=== PATIENT | female | born 1960 | race Caucasian/White ===

== ENCOUNTER → 2018-09-12 14:37 | Outpatient (CLI) | payer MEDICARE, MEDICAID, SELFPAY ==
--- NOTE | 2018-09-12 14:40 | CT_ITS ---
CT lung screening EXAM: CT LUNG LOW DOSE WO CONTRAST HISTORY: 45 pack year smoking history, asymptomatic for lung cancer ITS.REASON: CURRENT TOBACCO USE ORDERING PHYSICIAN: GERRY Angelo PATIENT AGE: 58 years COMPARISON: 11/05/2016 TECHNIQUE: The exam was performed on a GE Light Speed [address] scanner using 2.90 mGy CTDI. A low dose helical CT CHEST was performed on a multi-detector scanner. All CT scans at the facility use one or more dose reduction, viz: automated exposure control, ma/kV adjustment per patient size (including targeted exams where dose is matched to indication, i.e. head), or iterative reconstruction technique. The LDCT was performed in a facility that meets the criteria for the screening program. Data regarding this exam was submitted to ACR which is an approved registry. The order for this exam indicates that it came as a result of a lung cancer screening counseling shard decision-making visit that included all the elements required of such a visit including smoking cessation. The radiologist interpreting this exam meets the CMS criteria for the LDCT lung cancer screening program. The exam is reported using the Lung-RADS classification scale and reported to the ACR registry. NOTE: This study was performed for the specific purposes of lung cancer screening and is not an alternative to diagnostic chest CT. RADIATION DOSE: CTDI vol(CT dose Index-volume) = 2.90mG DLP (Dose Length Product) = 105.77 mGcm FINDINGS: There are biapical fibrotic changes with paraseptal emphysematous change with COPD. There are scattered small mediastinal lymph nodes which are not significant change. Coronary artery calcifications are also noted. There are scattered calcified granulomas. A 4 mm noncalcified nodule present in the left upper lobe anteriorly unchanged. There are several faint small nodular opacities in both lungs at 1 to 3 mm which do not appear significantly changed. No new suspicious nodules evident. IMPRESSION: 1. Lung RADS Category: 2, benign 2. Other findings: COPD, paraseptal emphysema, coronary artery calcifications RECOMMENDATIONS: 12 month LDCT follow-up
== END ==
PROVIDERS: PCP Physician Assistant; Visit Provider Physician Assistant
DX: Z12.2 Encounter for screening for malignant neoplasm of respiratory organs (principal); Z87.891 Personal history of nicotine dependence

== ENCOUNTER → 2019-05-16 08:20 | Outpatient (CLI) | payer MEDICARE, MEDICAID, SELFPAY ==
--- NOTE | 2019-05-16 08:23 | MM_ITS ---
PROCEDURE: MM DIG SCREENING MAMM BI W/CAD CLINICAL INDICATION: SCREENING There is no personal or family history of breast cancer. COMPARISON: [facility] DIG MAMM-SCREEN PETE from 04/11/2013 [facility] DIG MAMM-SCREEN PETE from 11/04/2015 TECHNIQUE: Standard CC and MLO images and 3D Tomosynthesis was obtained. R2 CAD reviewed. FINDINGS: Scattered fibroglandular densities are seen throughout both breasts and the findings are fairly symmetrical bilaterally. There is a benign-appearing calcification right breast. There is minimal arterial calcification in each breast. There is no suspicious lesion and no suspicious microcalcifications. Stuart images were reviewed showing no abnormality. IMPRESSION: Fibrofatty parenchyma with no suspicious lesions seen BI-RAD Category: 2 Benign Finding(s) FOLLOW-UP: 1YR 1 Year Follow-up (A letter has been sent to the patient regarding results of the study.) Dictated by: Dr. Fran Garcia MD 05/18/2019 08:[address] Fran Garcia MD in [place] 05/18/2019 08:04
--- NOTE | 2019-05-16 08:24 | XR_ITS ---
PROCEDURE: XR DEXA AXIAL SKELETON CLINICAL HISTORY: POST MENOPAUSAL COMPARISON: No exams were available for comparison FINDINGS: Osteopenia of the right femoral neck with a T-score of -2.4 and a BMD of 0.580. Osteoporosis left femoral neck with a T-score of -2.6 and a BMD of 0.55 Osteopenia of the lumbar spine with T-score -1.8 and a BMD of 0.846 IMPRESSION: Osteoporosis with high fracture risk. Treatment advised. Suggest follow-up exam 1 year Dictated by: Vishal Esparza MD 05/19/2019 14:56 Electronically signed by Vishal Esparza MD in [place] 05/19/2019 14:56
== END ==
PROVIDERS: PCP Physician Assistant; Visit Provider Physician Assistant
DX: Z12.31 Encounter for screening mammogram for malignant neoplasm of breast (principal); Z78.0 Asymptomatic menopausal state
CPT/HCPCS: 77063; 77067; 77080

== ENCOUNTER → 2020-06-13 10:31 | Outpatient (CLI) | payer MEDICARE, MEDICAID, SELFPAY ==
--- NOTE | 2020-06-13 10:50 | MR_ITS ---
PROCEDURE: MR HEAD/BRAIN WO/W CON CLINICAL INDICATION: history of pituitary tumor prior unsuccessful surgery to remove tumor in 1999. Occular migraine headache. Blurred vision symptoms x1yr. COMPARISON: No exams were available for comparison TECHNIQUE: Routine multiplanar multi echo sequences are performed without and with gadolinium enhancement. FINDINGS: Previous exams are not available for review. There is history of pituitary tumor. No restricted diffusion. CP angles are unremarkable. No midline shift or mass effect. There are few scattered T2 white matter hyperintensities which are nonspecific. No enhancing lesions are evident. No evidence of acute infarction. There is some mucosal thickening involving the residual right aspect of the sphenoid sinus. No obvious pituitary mass. The clivus is somewhat prominent but demonstrates fatty marrow replacement. The pituitary stalk is not deviated. The optic chiasm, corpus callosum, and craniocervical junction have an unremarkable appearance.. No mastoid effusion or sinus air-fluid level. IMPRESSION: 1. No acute intracranial findings. 2. No evidence of pituitary mass. 3. Sphenoid sinus disease on the right Dictated by: Vishal Esparza MD 06/19/2020 08:43 Vishal Esparza MD in [place] 06/19/2020 08:44
[2020-06-13 11:05] LABS: Basophils % 0.5 % (0.1-2.0); Eosinophils # 0.2 K/mm3 (0.0-0.4); Eosinophils % 2.4 % (0.1-12.0); Hematocrit 43.6 % (37.0-47.0); Hemoglobin 13.9 g/dL (12.2-16.2); Lymphocytes # 2.3 K/mm3 (0.7-4.5); Lymphocytes % 33.4 % (10-50); Mean Corpuscular HGB Conc 31.9 g/dL (31.8-35.4); Mean Corpuscular Hemoglobin 28.3 pg (27.0-31.2); Mean Corpuscular Volume 88.8 fl (81-99); Mean Platelet Volume 7.4 fl (7.4-10.4); Monocytes # 0.3 K/mm3 (0.1-1.0); Monocytes % 4.4 % (1.7-9.3); Neutrophils # 4.2 K/mm3 (1.8-7.8); Neutrophils % 59.2 % (37.0-80.0); Platelet Count 279 K/mm3 (142-424); Red Blood Count 4.92 M/mm3 (4.20-5.40); Red Cell Distribution Width 14.7 % (11.5-17.5)
[2020-06-13 11:25] LABS: Chloride 108 mmol/L (98-107)
[2020-06-13 11:26] LABS: Potassium 4.2 mmoL/L (3.5-5.1); Sodium 143 mmol/L (136-145)
[2020-06-13 11:28] LABS: Alanine Aminotransferase 17 U/L (12-78); Aspartate Amino Transferase 24 U/L (14-36); Bilirubin,Total 0.6 mg/dl (0.2-1.3); Blood Urea Nitrogen 9 mg/dl (7-17); Estimated Glomerular Filt Rate 85 ml/min (>60); GFR (African American) 103 ML/MIN (>60)
[2020-06-13 11:29] LABS: Albumin Level 4.6 g/dl (3.5-5.0); Albumin/Globulin Ratio 1.4 (1.1-1.8); Alkaline Phosphatase 95 U/L (38-126); Anion Gap 12.2 mEq/L (5-15); Calcium 9.8 mg/dl (8.4-10.2); Carbon Dioxide 27 mmol/L (22.0-30.0); Globulin 3.3 g/dL (1.3-3.2); Glucose 116 mg/dl (74-100); Total Protein,Serum 7.9 g/dl (6.3-8.2)
[2020-06-13 11:34] LABS: C-Reactive Protein 5.2 mg/L (0-4)
[2020-06-13 11:45] LABS: Erythrocyte Sedimentation Rate 11 mm/hr (0-30)
[2020-06-14 14:02] LABS: Prolactin 6.5 ng/mL (4.8-23.3)
[2020-06-21 18:01] LABS: Anti-DNA (DS) Ab Charge YES; Antinuclear Antibodies (ANA) POSITIVE
[2020-06-21 18:02] LABS: Anti-Jo-1 < 0.2; Anti-Jo-1 Charge YES; Antichromatin Abs Charge YES; Antichromatin Antibodies <0.2; Antiscleroderma-70 Abs Charge YES; Antiscleroderma-70 Antibodies <0.2; RNP Antibodies <0.2; RNP Antibodies Charge YES; Sjogren's Anti-SS-A <0.2; Sjogren's Anti-SS-A Ab Charge YES; Sjogren's Anti-SS-B <0.2; Sjogren's Anti-SS-B Ab Charge YES; Smith Antibodies Charge YES
[2020-06-21 18:03] LABS: Anti-Centromere B Abs Charge YES; Anti-Centromere B Antibodies < 0.2
== END ==
PROVIDERS: Visit Provider Specialist
DX: H53.9 Unspecified visual disturbance (principal); Z72.0 Tobacco use; Z87.898 Personal history of other specified conditions; Z98.890 Other specified postprocedural states; R51.9 Headache, unspecified
CPT/HCPCS: 36415; 70553; 80053; 84146; 85025; 85651; 86038; 86140; 86225; 86235; A9576

== ENCOUNTER → 2020-07-19 10:01 | Outpatient (CLI) | payer MEDICARE, MEDICAID, SELFPAY | PROVIDERS: PCP Family Medicine; Visit Provider Specialist | DX: H53.9 Unspecified visual disturbance (principal); R51.9 Headache, unspecified; Z72.0 Tobacco use; Z87.898 Personal history of other specified conditions; Z98.890 Other specified postprocedural states | CPT/HCPCS: 94762 ==

== ENCOUNTER 2020-08-12 12:23 | Emergency (ER) | payer MEDICARE, MEDICAID, SELFPAY ==
--- NOTE | 2020-08-12 13:07 | HMH.EDUTC ---
[facility] [place] Disposition Clinical Impression: COPD exacerbation Disposition: Home, Self-Care Condition on Discharge: Good Instructions: Chronic Obstructive Pulmonary Disease, DI for Chronic Obstructive Pulmonary Disease Additional Instructions: Drink plenty of fluids. Take tylenol for pain or fever. Return if you begin to have difficulty breathing. Follow up with your regular doctor. GO TO THE ER FOR ANY WORSENING SYMPTOMS Prescriptions: predniSONE [Prednisone 20mg Tab] 20 mg PO BID 4 Days #8 tab Transmission Status: Received by [email or web address] Benzonatate [Tessalon Perle 100mg Cap] 100 mg PO TIDP PRN #30 cap PRN Reason: Cough Transmission Status: Received by [email or web address] Azithromycin [Z-Ishaan 250mg Tab*] 250 mg PO UD DOSE PK #6 tab Transmission Status: Received by [email or web address] Referrals: Ever Jiménez MD [Primary Care Provider] - Time of Disposition: 13:21 Medical Decision Making - Medical Records Medical records reviewed: No: I reviewed the patient's medical records. - Naif Inquiry Pt receiving controlled substance: No Vital Signs: 08/12/20 13:15 08/12/20 13:31 Temperature 98.5 F 98 F Temperature Source Oral Pulse Rate 102 H Pulse Rate [Right] 107 H Respiratory Rate 20 22 Blood Pressure 141/96 H Blood Pressure [Right Arm] 136/89 Blood Pressure Mean [Right Arm] 104 02 Sat by Pulse Oximetry 96 Oxygen Delivery Method Room Air [facility] [place] HPI - General Stated complaint: soa Time Seen by Provider: 08/12/20 13:07 - History of Present Illness Provider Complaint: She states that for the past 2 days she has had a worsening cough and congestion. She denies fever/chills. She denies any exposure to covid-19. - Related Data Home Medications Medication Instructions Recorded Confirmed Alendronate Sodium [Fosamax 70mg 70 mg PO WEEKLY 06/05/19 07/23/20 Tablet] cholecalciferol (vitamin D3) 125 125 mcg PO DAILY 06/11/20 07/23/20 mcg (5,000 unit) capsule levothyroxine 175 mcg tablet 175 mcg PO DAILY tab 06/11/20 07/23/20 magnesium 30 mg tablet 30 mg PO DAILY 06/11/20 07/23/20 aspirin 81 mg tablet,delayed 81 mg PO DAILY 07/23/20 07/23/20 release multivitamin 1 tab PO DAILY 07/23/20 07/23/20 Previous Rx's Medication Instructions Recorded amitriptyline 25 mg tablet 25 mg PO HS #30 tab 07/23/20 Azithromycin [Z-Ishaan 250mg Tab*] 250 mg PO UD DOSE PK #6 tab 08/12/20 Benzonatate [Tessalon Perle 100mg 100 mg PO TIDP PRN #30 cap 08/12/20 Cap] predniSONE [Prednisone 20mg 20 mg PO BID 4 Days #8 tab 08/12/20 Tab] Allergies Allergy/AdvReac Type Severity Reaction Status Date / Time butorphanol Allergy Unknown UNKNOWN Verified 08/12/20 13:18 codeine Allergy Unknown UNKNOWN Verified 08/12/20 13:18 morphine Allergy Unknown UNKNOWN Verified 08/12/20 13:18 Penicillins Allergy Unknown Verified 08/12/20 13:18 [facility] History - Hepatitis A Screen Attestation statement:: This patient has been screened for Hepatitis A risk factors. I have reviewed the patient's past medical history: Yes Medical History: Reports:: Chronic Obstructive Pulmonary Disease (COPD), Kidney Stones, Migraine, Osteoporosis Denies:: Cancer, Diabetes Mellitus Type 1, Diabetes Mellitus Type 2, Internal Pacemaker, MRSA, Seizures Other Medical History: Reports: Fibromyalgia, Hypothyroidism, Osteoporosis, Thyroid Disease Other Surgeries: Yes: Appendectomy, Cholecystectomy, Colonoscopy, Dilation and Curettage, Hysterectomy-Total, Thyroidectomy, Other. No: Pacemaker Amputation: No Fractures: No Comment: brain tumor resection,lumbar discectomy - Social History Smoking Status: Current every day smoker Tobacco Type: cigarettes # Packs/Day (cigarettes): 1 Alcohol Intake: never Substance Use Type: denies use Occupational Status: disabled Housing: house Household Members: family, children Family Hx:: Cancer ROS Obtained: Yes All systems reviewed & no additional complaints - Con
[2020-08-12 13:15] VITALS: BP 136/89; PULSE 107; RESP 20; TEMP 36.9; O2SAT 96; BMI 26.5
[2020-08-12 13:31] VITALS: BP 141/96; PULSE 102; RESP 22; TEMP 36.6
== END 2020-08-12 13:38 | disposition home or self-care (01) ==
PROVIDERS: Emergency Provider Nurse Practitioner Family; PCP Family Medicine
DX: J44.1 Chronic obstructive pulmonary disease with (acute) exacerbation (principal); M79.7 Fibromyalgia; E03.9 Hypothyroidism, unspecified; M81.0 Age-related osteoporosis without current pathological fracture; Z87.442 Personal history of urinary calculi; F17.210 Nicotine dependence, cigarettes, uncomplicated; Z79.899 Other long term (current) drug therapy
CPT/HCPCS: G0463; 99202

== ENCOUNTER → 2020-11-15 16:42 | Outpatient (CLI) | payer MEDICARE, MEDICAID, SELFPAY ==
--- NOTE | 2020-11-15 | XR_ITS ---
PROCEDURE INFORMATION: Exam: XR Right Forearm Exam date and time: 11/15/2020 12:00 AM Age: 60 years old Clinical indication: Injury or trauma; Other: Hit arm against door frame; Blunt trauma (contusions or hematomas); Arm, lower; Right; Injury date: 11/05/2020; Injury details: Pain lateral proximal fore arm; Patient HX: Patient bumped arm against door frame 11/05/20 TECHNIQUE: Imaging protocol: XR Right forearm. Views: 2 views. COMPARISON: No relevant prior studies available. FINDINGS: Bones/joints: There is no evidence of acute fracture. There is no evidence of joint malalignment or dislocation. Soft tissues: There are no soft tissue masses or fluid collections. IMPRESSION: 1. No evidence of acute fracture. 2. No evidence of acute dislocation.
== END ==
PROVIDERS: PCP Family Medicine; Visit Provider Internal Medicine Rheumatology
DX: M79.631 Pain in right forearm (principal)
CPT/HCPCS: 73090

== ENCOUNTER → 2020-11-22 08:16 | Outpatient (CLI) | payer MEDICARE, MEDICAID, SELFPAY ==
--- NOTE | 2020-11-22 08:19 | CT_ITS ---
PROCEDURE: CT LUNG SCREENING CLINICAL INDICATION: SCREENING COMPARISON: CT LDCTLCAS LDCT FOR LUNG CA SCREEN from 11/05/[address] lung screening from 09/12/2018 TECHNIQUE: The exam was performed on a GE Zeolife Speed [address] scanner using 2.90 mGy CTDI. A low dose helical CT CHEST was performed on a multi-detector scanner. All CT scans at the facility use one or more dose reduction, viz: automated exposure control, ma/kV adjustment per patient size (including targeted exams where dose is matched to indication, i.e. head), or iterative reconstruction technique. The LDCT was performed in a facility that meets the criteria for the screening program. Data regarding this exam was submitted to ACR which is an approved registry. The order for this exam indicates that it came as a result of a lung cancer screening counseling shard decision-making visit that included all the elements required of such a visit including smoking cessation. The radiologist interpreting this exam meets the CMS criteria for the LDCT lung cancer screening program. The exam is reported using the Lung-RADS classification scale and reported to the ACR registry. NOTE: This study was performed for the specific purposes of lung cancer screening and is not an alternative to diagnostic chest CT. RADIATION DOSE: CTDI vol(CT dose Index-volume) = 2.90mG DLP (Dose Length Product) = 109.94 mGcm FINDINGS: COPD with biapical fibrotic changes. Paraseptal emphysema and centrilobular emphysema. Scattered areas of scarring. No suspicious nodules apparent. There are coronary artery calcifications. Stable 4 mm left upper lobe subpleural nodular opacity OTHER FINDINGS: Prior cholecystectomy. IMPRESSION: Lung-RADS Category 2 Benign Appearance or Behavior Follow-up: Continue annual screening with LDCT in 12 months Dictated by: Vishal Esparza MD 11/25/2020 09:27 Vishal Esparza MD in [place] 11/25/2020 09:27
== END ==
PROVIDERS: PCP Family Medicine; Visit Provider Family Medicine
DX: Z87.891 Personal history of nicotine dependence (principal); Z12.2 Encounter for screening for malignant neoplasm of respiratory organs
CPT/HCPCS: 71271

== ENCOUNTER → 2021-05-23 10:48 | Outpatient (CLI) | payer MEDICARE, MEDICAID, SELFPAY ==
--- NOTE | 2021-05-23 11:05 | US_ITS ---
FINAL REPORT CLINICAL HISTORY: FULLNESS IN MID NECK; PT HAS HAD THYROIDECTOMY FINDINGS: ULTRASOUND OF THE NECK SOFT TISSUES Patient reports prior thyroidectomy. There is a 9 mm probable lymph node in the left neck. This is within normal limits. There is no mass, lymphadenopathy, or fluid collection identified. Parotid and submandibular glands appear normal bilaterally. IMPRESSION: No abnormality identified by ultrasound. Reviewed, Interpreted and Dictated by James Holliday III, MD Transcribed by GERRY Amaya Authenticated by James Holliday III, MD on 05/23/2021 02:57:04 PM [facility]
== END ==
PROVIDERS: PCP Family Medicine; Visit Provider Family Medicine
DX: R22.1 Localized swelling, mass and lump, neck (principal)
CPT/HCPCS: 76536

== ENCOUNTER → 2021-06-03 08:55 | Outpatient (CLI) | payer MEDICARE, MEDICAID, SELFPAY | PROVIDERS: PCP Family Medicine; Visit Provider Nurse Practitioner | DX: U07.1 COVID-19 (principal) | CPT/HCPCS: C9803; U0003; U0005 ==

== ENCOUNTER → 2022-01-14 12:00 | Outpatient (CLI) | payer MEDICARE, MEDICAID, SELFPAY ==
--- NOTE | 2022-01-14 12:08 | XR_ITS ---
FINAL REPORT CLINICAL HISTORY: 2ND DIGIT FINGER INJURY FINDINGS: Right hand Three views were obtained. There is no acute fracture or dislocation. There are mild degenerative changes. No soft tissue abnormality is identified. IMPRESSION: No acute process. Reviewed, Interpreted and Dictated by James Holliday III, MD Transcribed by Lorraine Horton Authenticated and [facility]
== END ==
PROVIDERS: PCP Family Medicine; Visit Provider Nurse Practitioner Family
DX: S60.921A Unspecified superficial injury of right hand, initial encounter (principal)
CPT/HCPCS: 73130

== ENCOUNTER 2022-03-10 09:15 | Emergency (ER) | payer MEDICARE, MEDICAID, SELFPAY ==
[2022-03-10 09:15] VITALS: BP 135/91; PULSE 74; RESP 16; TEMP 36.7; O2SAT 96; BMI 26.2
--- NOTE | 2022-03-10 09:23 | PC.NURSE ---
ODELL SIMPSON at for patient eval
--- NOTE | 2022-03-10 09:26 | HMH.EDGENADL ---
Discharge Plan Disposition Patient Disposition: Home, Self-Care Condition: Good Prescriptions Prescriptions: New sulfamethoxazole-trimethoprim 800-160 mg tablet 1 tab PO BID 7 Days Qty: 14 0RF No Action aspirin [Adult Low Dose Aspirin] 81 mg tablet,delayed release (DR/EC) 81 mg PO DAILY multivitamin Tablet 1 tab PO DAILY levothyroxine 175 mcg tablet 175 mcg PO DAILY cholecalciferol (vitamin D3) 125 mcg (5,000 unit) capsule 125 mcg PO DAILY ascorbic acid (vitamin C) 500 mg tablet 500 mg PO DAILY hydroxychloroquine 200 mg tablet 200 mg PO BID alendronate 70 MG tablet 70 mg PO WEEKLY Referrals Follow up/Referrals: Ever Jiménez MD [Primary Care Provider] - See instructions Activity Restrictions/Add. Instructions Additional Instructions/Restrictions: You have been evaluated for abscess of the left earlobe. Abscess has been drained. Please take antibiotics as prescribed. Use warm compresses over the area. Take Tylenol or Motrin for pain and fever. Follow-up with your primary care doctor for wound recheck in 1 to 2 days. Return to the emergency department at once for any new or worsening symptoms, pain, fever, other concerns Clinical Impressions Clinical Impression: Abscess of skin or subcutaneous tissue Instructions Patient Instructions: DI for Skin Abscess Discharge ED Provider: Lor Deleon Adult HPI General Chief complaint: Skin/Abscess/Foreign Body Stated complaint: sore on left ear Time Seen by Provider: 03/10/22 09:24 History of Present Illness HPI narrative: 61-year-old female presenting to the emergency department with left earlobe pain. Pain started yesterday. She had a small red area that was tender to the touch. This morning when she woke up it was much larger. Swelling has increased. Itching, burning pain. Sharp with touch. She does not remember an injury. Says she might have gotten a spider bite, was helping a family member clean out a cabin. No fevers, chills, nausea, vomiting. No history of cysts. No recent antibiotic use. Most recent tetanus was 1 year ago. Related Data Home Medications Medication Instructions Recorded Confirmed alendronate 70 mg tablet 70 mg PO WEEKLY Osteoporosis 06/05/19 02/04/21 cholecalciferol (vitamin D3) 125 125 mcg PO DAILY 06/11/20 02/04/21 mcg (5,000 unit) capsule levothyroxine 175 mcg tablet 175 mcg PO DAILY 06/11/20 02/04/21 aspirin 81 mg tablet,delayed 81 mg PO DAILY 07/23/20 02/04/21 release (Adult Low Dose Aspirin) multivitamin 1 tab PO DAILY 07/23/20 02/04/21 ascorbic acid (vitamin C) 500 mg 500 mg PO DAILY 11/26/20 02/04/21 tablet hydroxychloroquine 200 mg tablet 200 mg PO BID 02/04/21 02/04/21 Previous Rx's Medication Instructions Recorded sulfamethoxazole 800 1 tab PO BID 7 days #14 tabs 03/10/22 mg-trimethoprim 160 mg tablet Allergies Allergy/AdvReac Type Severity Reaction Status Date / Time butorphanol Allergy Unknown UNKNOWN Verified 02/04/21 13:05 codeine Allergy Unknown UNKNOWN Verified 02/04/21 13:05 morphine Allergy Unknown UNKNOWN Verified 02/04/21 13:05 Penicillins Allergy Unknown Verified 02/04/21 13:05 PFSH PFSH Social History Smoking Status: Current every day smoker tobacco type: cigarettes packs per day: 1 alcohol intake: never substance use type: denies use current occupational status: disabled Travel in the last 8 weeks: None household members: family and children housing: house current occupational exposures/hazards: No caffeine: Yes ROS Obtained: Yes All systems reviewed & no additional complaints except as documented Constitutional Constitutional: Denies chills, Denies fever(s) and Denies headache(s) Eyes Eyes: Denies blurry vision and Denies irritation ENT Ears, Nose, Mouth, and Throat: Denies otalgia, Denies headache(s) and Reports other (Earlobe pain, redness, swelling) Cardiovascular Cardiovascular:
[2022-03-10 10:29] VITALS: BP 129/86; PULSE 66; RESP 20; TEMP 36.7; O2SAT 99
== END 2022-03-10 10:31 | disposition home or self-care (01) ==
PROVIDERS: Emergency Provider Emergency Medicine; PCP Family Medicine
DX: H60.02 Abscess of left external ear (principal); J44.9 Chronic obstructive pulmonary disease, unspecified; F17.210 Nicotine dependence, cigarettes, uncomplicated; Z79.82 Long term (current) use of aspirin; Z79.899 Other long term (current) drug therapy; Z88.0 Allergy status to penicillin; Z88.5 Allergy status to narcotic agent; Z88.8 Allergy status to other drugs, medicaments and biological substances
CPT/HCPCS: 69000; 99283

== ENCOUNTER 2022-09-15 20:37 | Emergency (ER) | payer MEDICARE, MEDICAID, SELFPAY ==
[2022-09-15 20:45] VITALS: BP 142/84; PULSE 78; RESP 14; TEMP 36.7; O2SAT 94; BMI 26.2
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
[2022-09-15 21:33] VITALS: BP 112/75; PULSE 76; RESP 19; TEMP 36.8; O2SAT 98
== END 2022-09-15 21:39 | disposition home or self-care (01) ==
PROVIDERS: Emergency Provider Emergency Medicine; PCP Family Medicine
DX: S90.02XA Contusion of left ankle, initial encounter (principal); W21.03XA Struck by baseball, initial encounter
CPT/HCPCS: 73610; 99283; 99284

== ENCOUNTER → 2022-09-24 12:07 | Outpatient (CLI) | payer MEDICARE, MEDICAID, SELFPAY ==
--- NOTE | 2022-09-24 12:13 | XR_ITS ---
FINAL REPORT CLINICAL HISTORY: INJURY OF LEFT ANKLE COMPARISON: None FINDINGS: LEFT ANKLE: Three views of the left ankle were obtained. There is no acute fracture or dislocation. The joint spaces and mortise are intact. There are calcifications in the region of the distal Achilles tendon. IMPRESSION: No acute bony abnormality. Reviewed, Interpreted and Dictated by James Holliday III, MD Transcribed by Cassy Mcdaniel Authenticated and [facility]
== END ==
PROVIDERS: PCP Family Medicine; Visit Provider Physician Assistant
DX: M25.572 Pain in left ankle and joints of left foot (principal); S99.912D Unspecified injury of left ankle, subsequent encounter
CPT/HCPCS: 73610

== ENCOUNTER → 2022-10-23 09:00 | Outpatient (CLI) | payer MEDICARE, MEDICAID, SELFPAY ==
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
== END ==
PROVIDERS: PCP Family Medicine; Visit Provider Orthopaedic Surgery
DX: S99.912A Unspecified injury of left ankle, initial encounter (principal); M25.572 Pain in left ankle and joints of left foot
CPT/HCPCS: 73610

== ENCOUNTER 2022-12-30 08:29 | Day surgery (SDC) | payer MEDICARE, MEDICAID, SELFPAY ==
[2022-12-28 14:26] VITALS: BMI 26.9
[2022-12-30] VITALS (7 sets, daily range): BP systolic 108–144; BP diastolic 57–84; PULSE 57–72; RESP 18; TEMP 36.1–36.6; O2SAT 96–100
--- NOTE | 2022-12-30 12:01 | HMH.SCOPE ---
Procedure: Date: 12/30/22 Patient Date of :: 1960 Procedure Performed:: Total colonoscopy to terminal ileum with polypectomy using hot snare, injection submucosal Ami ink for marking of lesion Indications:: Patient is a 62-year-old female whom I had seen for screening colonoscopy in the past. I performed total colonoscopy on 06/06/2019 at which time she was found to have several polyps, total of 8. However, she had rather poor colonic preparation with inability to thoroughly evaluate the right colon. Given the number of polyps and suboptimal preparation follow-up colonoscopy was recommended within 6 to 12 months pending the pathology. She did have a couple of tubular adenomas. She was seen back in the office for follow-up on 06/19/2019. At that time it was recommended that given the poor preparation and adenomatous polyps that she undergo repeat colonoscopy in 6 months. She was seen back in the office to schedule the colonoscopy on 02/05/2020. She was scheduled for repeat colonoscopy. She did not follow through with this initially scheduled to repeat colonoscopy. Performing Provider:: Jaems Longo MD Referring Provider:: Ever Jiménez MD Sedation:: MAC sedation Procedure:: Patient history was obtained and appropriate physical examination was performed. Patient's medications and allergies were reviewed. Informed consent was obtained after explaining the benefits, alternatives, and risks of the procedure including, but not limited to, bleeding, perforation, missed lesions, and adverse reaction to anesthesia medications. Patient was transported to endoscopy procedure room. Patient was connected to monitoring devices. Throughout the procedure the patient's blood pressure, pulse, and oxygen saturations were monitored continuously. Patient identification and planned procedure were verified by the staff. Patient was positioned in lateral decubitus position. Digital anorectal exam was performed. Variable stiffness Olympus colonoscope was inserted and advanced under direct visualization to the cecum. Adequacy of the colonic preparation was noted. The colonoscope was advanced a short distance into the terminal ileum. The colonoscope was then slowly withdrawn while carefully examining the color, texture, anatomy, and integrity of the mucosoa circumferentially. Within the rectum retroflexion was performed. Colonoscope was then withdrawn. . Patient has some redundancy and floppiness of the sigmoid colon which made advancement of the colonoscope somewhat challenging requiring abdominal pressure. Colonic preparation was fair but adequate visualization was achieved with thorough trans colonoscopic irrigation and suctioning. The colonoscope was advanced a generous distance into the terminal ileum which appeared grossly normal. In the ascending colon there was a rather large adenomatous polyp removed in a piecemeal fashion using hot snare. This was sent as ascending colon polyp. Distal to this just proximal to the hepatic flexure there was a large adenomatous nearly semicircumferential mass. Using the thin 30 mm snare large portion of this was removed. It was grasped partially with the Hubbard net as the colonoscope was withdrawn and specimen was placed in specimen container. Colonoscope was then reinserted. Multiple large pieces of this hemicircumferential adenomatous appearing mass were removed and repeatedly retrieved as the endoscope was withdrawn and then reinserted to the area. Estimated 75% of the lesion was removed but it was felt that additional aggressive attempts at removal could result in perforation. The area was marked with Ami ink. Hemoclip was placed for radiographic marking. Colonoscope was then slowly withdrawn through the colon with careful surveillance. Thorough irrigation and suctioning was performed. There were several diminutive hyperplastic appearing rectosigmoid polyps. Larger of these was removed with cold
== END 2022-12-30 12:50 | disposition home or self-care (01) ==
PROVIDERS: PCP Family Medicine; Visit Provider Surgery
PROC: 0DJD8ZZ Inspection of Lower Intestinal Tract, Via Natural or Artificial Opening Endoscopic (ICD-10-PCS; CPT 45385; principal; 2022-12-30 09:30)
DX: Z12.11 Encounter for screening for malignant neoplasm of colon (principal); Z86.010 Personal history of colon polyps; K64.8 Other hemorrhoids; D12.2 Benign neoplasm of ascending colon; D12.7 Benign neoplasm of rectosigmoid junction
CPT/HCPCS: 45385; 88305; J2704

== ENCOUNTER 2023-02-18 06:29 | Day surgery (SDC) | payer MEDICARE, MEDICAID, SELFPAY ==
[2023-02-16 13:34] VITALS: BMI 27.6
[2023-02-18] VITALS (14 sets, daily range): BP systolic 108–157; BP diastolic 63–83; PULSE 59–79; RESP 16–18; TEMP 36.3–36.6; O2SAT 95–100
--- NOTE | 2023-02-18 07:14 | EXP.GEN.HP ---
HPI HPI HPI: Patient presents for followup colonoscopy. She had colonoscopy done on 12/30/2022. Patient is a 62-year-old female whom I had seen for screening colonoscopy in the past. I performed total colonoscopy on 06/06/2019 at which time she was found to have several polyps, total of 8. However, she had rather poor colonic preparation with inability to thoroughly evaluate the right colon. Given the number of polyps and suboptimal preparation follow-up colonoscopy was recommended within 6 to 12 months. She did have a couple of tubular adenomas. She was seen back in the office for follow-up on 06/19/2019. At that time it was recommended that given the poor preparation and adenomatous polyps that she undergo repeat colonoscopy in 6 months. She was seen back in the office to schedule the colonoscopy on 02/05/2020. She was scheduled for repeat colonoscopy. She did not follow through with this initially scheduled to repeat colonoscopy. Ultimately underwent colonoscopy on 12/30/2022. This revealed the following findings: Fair preparation Large ascending colon polyp Large ascending polypoid Harish circumferential mass proximal to the hepatic flexure, partially removed in piecemeal fashion using a large hot snare with injection of Ami ink and Hemoclip deployment. Pathology in the ascending colon revealed tubular adenoma and sessile serrated lesion without dysplasia. Ascending colon polyp #2, large lesion proximal to the hepatic flexure, revealed tubular/tubulovillous adenoma without dysplasia and sessile serrated lesion without dysplasia. I had a long discussion with the patient regarding the options. I would not necessarily advocate definite colon resection at this time as she did not have any invasive component or dysplasia. Plan was for follow-up colonoscopy with hopeful completion polypectomy in early interval using magnesium citrate prep. I did explain to her that given the large size of this polypoid mass that she does have somewhat of a risk of perforation. Also this may develop recurrence requiring right colon resection and may not be amenable to endoscopic removal thus requiring colon resection. [facility] Disclaimer: The information contained in this section may have been updated after the patient was seen, as this information can be updated by other users. Medical History (Updated 02/18/23 @ 07:18 by James Longo MD) Allergies Chronic cough COPD (chronic obstructive pulmonary disease) History of brain tumor History of COVID-19 Hypothyroid Migraines Pituitary tumor Surgical History History of cholecystectomy History of colonoscopy History of hysterectomy History of surgery Hx of appendectomy S/P thyroid surgery Family History Other Cancer Social History Smoking Status: Current every day smoker tobacco type: cigarettes packs per day: 1 alcohol intake: never substance use type: denies use current occupational status: retired Travel in the last 8 weeks: None household members: family and children housing: house current occupational exposures/hazards: No caffeine: Yes Meds Home Medications and Allergies Home Medications Medication Instructions Recorded Confirmed Type levothyroxine 175 mcg tablet 175 mcg PO DAILY . 06/11/20 02/16/23 History aspirin 81 mg tablet,delayed 81 mg PO DAILY . 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
--- NOTE | 2023-02-18 08:17 | HMH.SCOPE ---
Procedure: Date: 02/18/23 Patient Date of :: 1960 Procedure Performed:: Total colonoscopy with polypectomy using hot snare and biopsy forceps Indications:: Patient presents for followup colonoscopy. She had colonoscopy done on 12/30/2022. Patient is a 62-year-old female whom I had seen for screening colonoscopy in the past. I performed total colonoscopy on 06/06/2019 at which time she was found to have several polyps, total of 8. However, she had rather poor colonic preparation with inability to thoroughly evaluate the right colon. Given the number of polyps and suboptimal preparation follow-up colonoscopy was recommended within 6 to 12 months. She did have a couple of tubular adenomas. She was seen back in the office for follow-up on 06/19/2019. At that time it was recommended that given the poor preparation and adenomatous polyps that she undergo repeat colonoscopy in 6 months. She was seen back in the office to schedule the colonoscopy on 02/05/2020. She was scheduled for repeat colonoscopy. She did not follow through with this initially scheduled to repeat colonoscopy. Ultimately underwent colonoscopy on 12/30/2022. This revealed the following findings: Fair preparation Large ascending colon polyp Large ascending polypoid Harish circumferential mass proximal to the hepatic flexure, partially removed in piecemeal fashion using a large hot snare with injection of Ami ink and Hemoclip deployment. Pathology in the ascending colon revealed tubular adenoma and sessile serrated lesion without dysplasia. Ascending colon polyp #2, large lesion proximal to the hepatic flexure, revealed tubular/tubulovillous adenoma without dysplasia and sessile serrated lesion without dysplasia. I had a long discussion with the patient regarding the options. I would not necessarily advocate definite colon resection at this time as she did not have any invasive component or dysplasia. Plan was for follow-up colonoscopy with hopeful completion polypectomy in early interval using magnesium citrate prep. I did explain to her that given the large size of this polypoid mass that she does have somewhat of a risk of perforation. Also this may develop recurrence requiring right colon resection and may not be amenable to endoscopic removal thus requiring colon resection. . . Performing Provider:: James Longo MD Referring Provider:: Ever Jiménez MD Sedation:: MAC sedation Procedure:: Patient history was obtained and appropriate physical examination was performed. Patient's medications and allergies were reviewed. Informed consent was obtained after explaining the benefits, alternatives, and risks of the procedure including, but not limited to, bleeding, perforation, missed lesions, and adverse reaction to anesthesia medications. Patient was transported to endoscopy procedure room. Patient was connected to monitoring devices. Throughout the procedure the patient's blood pressure, pulse, and oxygen saturations were monitored continuously. Patient identification and planned procedure were verified by the staff. Patient was positioned in lateral decubitus position. Digital anorectal exam was performed. Variable stiffness Olympus colonoscope was inserted and advanced under direct visualization to the cecum. Adequacy of the colonic preparation was noted. The colonoscope was advanced a short distance into the terminal ileum. The colonoscope was then slowly withdrawn while carefully examining the color, texture, anatomy, and integrity of the mucosoa circumferentially. Within the rectum retroflexion was performed. Colonoscope was then withdrawn. . The lesion was identified apparently just proximal to the hepatic flexure. This was a large flat sessile irregular adenomatous lesion. There actually appeared to be some recurrence of adenomatous appearing tissue with progression from previous polypectomy site. Using the hot snare multiple pieces of the ma
--- NOTE | 2023-02-18 08:21 | P.PNANES_ITS ---
[facility] Disclaimer: The information contained in this section may have been updated after the patient was seen, as this information can be updated by other users. Medical History (Updated 02/18/23 @ 07:18 by James Longo MD) Allergies Chronic cough COPD (chronic obstructive pulmonary disease) History of brain tumor History of COVID-19 Hypothyroid Migraines Pituitary tumor Surgical History History of cholecystectomy History of colonoscopy History of hysterectomy History of surgery Hx of appendectomy S/P thyroid surgery Family History Other Cancer Social History Smoking Status: Current every day smoker tobacco type: cigarettes packs per day: 1 alcohol intake: never substance use type: denies use current occupational status: retired Travel in the last 8 weeks: None household members: family and children housing: house current occupational exposures/hazards: No caffeine: Yes [facility] Anesthesia Checklist Patient Identification Patient Identification: Verbal (Name & ) Structural Data Admitted From: Home Planned Operative Procedure/s: colonoscopy Consent for Planned Operative Procedure(s) Verified: Yes Additional verifications Anesthesia Reactions: No Airway Assessment Mallampati Score:: Class II C-Spine Mobility Assessed: Yes TMJ Mobility Assessed: Yes Dentition: Dentures-good fit Neurological Assessment Level of Consciousness: Awake, Alert and Appropriate Anesthesia Plan Anesthesia Risk discussed: Yes Anesthesia Plan: Verified ASA Class: II Anesthesia Type: MAC
--- NOTE | 2023-02-18 11:00 | CT_ITS ---
FINAL REPORT TECHNIQUE: Thin section axial images are obtained through the abdomen and pelvis after intravenous contrast. Reconstruction images were obtained from the axial data. Exam was performed using dose reduction techniques. CLINICAL HISTORY: COLON MASS COLONOSCOPY THIS MORNING FINDINGS: LUNG BASES: Lung bases are clear. Heart size is normal. LIVER: There is diffuse fatty infiltration of the liver. No focal lesion. GALLBLADDER/BILIARY SYSTEM: The gallbladder has been surgically removed. No gallstones. No biliary dilatation. SPLEEN: Unremarkable. PANCREAS: Unremarkable. ADRENALS: Unremarkable. SYSTEM: No hydronephrosis, renal mass, or renal stone. Unremarkable urinary bladder. The uterus has been surgically removed. GI TRACT: No small bowel obstruction or dilatation. The appendix is likely resected. There are several areas of segmental wall thickening which may be related to peristalsis or to reported colon lesions in the patient with recent colonoscopy. LYMPH NODES/RETROPERITONEUM/MESENTERY: No lymphadenopathy. No abdominal aortic aneurysm. OTHER: No ascites. Remaining soft tissues without acute abnormality. BONES: No acute osseous abnormality. IMPRESSION: No obstructive colonic lesion is identified. There are several areas of segmental wall thickening that may be related either to peristalsis or to a reported colon lesion. Diffuse fatty infiltration of the liver. No convincing evidence of metastatic disease. Reviewed, Interpreted and Dictated by Kylah Avery MD Transcribed by Tory Cosby Authenticated and [facility]
== END 2023-02-18 11:03 | disposition home or self-care (01) ==
PROVIDERS: PCP Family Medicine; Visit Provider Surgery
PROC: 0DJD8ZZ Inspection of Lower Intestinal Tract, Via Natural or Artificial Opening Endoscopic (ICD-10-PCS; CPT 45380; principal; 2023-02-18 07:30)
DX: K63.89 Other specified diseases of intestine (principal); D12.2 Benign neoplasm of ascending colon; K51.40 Inflammatory polyps of colon without complications; K57.30 Diverticulosis of large intestine without perforation or abscess without bleeding; K64.8 Other hemorrhoids
CPT/HCPCS: 45380; 45385; 36415; 74177; 82565; 84520; 88305; J2704; Q9967

== ENCOUNTER → 2023-02-18 09:25 | Outpatient (CLI) | payer MEDICARE, MEDICAID, SELFPAY ==
[2023-02-18 11:40] LABS: Blood Urea Nitrogen 8 mg/dl (7-17); Estimated Glomerular Filt Rate 125 ml/min (>60); GFR (African American) 151 ML/MIN (>60)
== END ==
PROVIDERS: PCP Surgery; Visit Provider Surgery
DX: K63.89 Other specified diseases of intestine (principal); Z86.010 Personal history of colon polyps
CPT/HCPCS: 36415; 82565; 84520

== ENCOUNTER 2024-01-19 07:44 | Outpatient (CLI) | payer MEDICARE, MEDICAID, SELFPAY ==
--- NOTE | 2024-01-19 07:50 | US_ITS ---
FINAL REPORT CLINICAL HISTORY: EPIGASTRIC ABD PAIN COMPARISON: None FINDINGS: Sonographic images of the abdomen were obtained. There is fatty infiltration of the liver. The gallbladder is absent. There is no evidence of biliary ductal dilatation. The common hepatic duct measures 3 mm, which is within normal limits. The pancreas is partially obscured. The spleen size is normal. The right kidney measures 10.9 cm in length. The left kidney measures 10.9 cm in length. There is normal renal echogenicity. There is no evidence of hydronephrosis. The aorta has an unremarkable appearance. Limited images of the inferior vena cava are unremarkable. IMPRESSION: Fatty liver. Reviewed, Interpreted and Dictated by James Holliday III, MD Transcribed by Cassy Mcdaniel Authenticated and [facility]
== END 2024-01-19 23:59 | disposition home or self-care (01) ==
LOC: RAD 07:45
PROVIDERS: PCP Family Medicine; Visit Provider Family Medicine
DX: R10.13 Epigastric pain (principal)
CPT/HCPCS: 76700

== ENCOUNTER 2024-12-12 09:19 | Outpatient (CLI) | payer MEDICARE, OTHER, SELFPAY ==
--- OUTSIDE RECORDS SUMMARY | 2024-01-13 07:30 | XMS_ITS ---
Author Organization [facility] Address [address] [place] [id number] Care Team Providers Care Welder Fitter Gas Name Role Phone Ever Jiménez Primary Care Provider Allergies Allergen (clinical drug ingredient) Drug/Non Drug Allergy documented on EMR Reaction Allergy Type Onset Date Status butorphanol Butorphanol Tartrate hot flashes, couldn't move Drug Allergy Active codeine Codeine vomiting Drug Allergy Active morphine Morphine Unknown Drug Allergy Active Substance with penicillin structure and antibacterial mechanism of action (substance) Penicillins Unknown Drug Allergy Active Results Component Value Reference Range Notes CBC Venipuncture (in house) Reviewed date:01/14/2024 09:26:39 AM Interpretation: Normal Performing Lab: Notes/Report: Normal wbc 6.6 3.5 - 10 lymph 36.3% 15 - 50 mid 7.8% 2 - 15 gran 55.9% 35 - 80 rbc 5.03 3.5 - 5.5 hgb 14.0 11.5 - 16.5 hct 42.0 35 - 55 mcv 83.5 75 - 100 mch 27.9 25 - 35 mchc 33.4 31 - 38 platlet 279 100 - 400 P-Amylase Reviewed date:01/14/2024 09:26:39 AM Interpretation: Normal Performing Lab: Notes/Report: Test performed by [facility] [address] [place] [address] , [address], [place] [address] Drake Brower MD, Senior Benefits Analyst CLIA: [id number] Amylase 65 28-100 U/L P-Comprehensive Metabolic Pa dean (CMP) Reviewed date:01/14/2024 09:26:39 AM Interpretation:gluc 109, alk phos 128 Performing Lab: Notes/Report: Test performed by [facility] [address] [place] [address] , [address], [place] [address] Drake Brower MD, Senior Benefits Analyst CLIA: [id number] Sodium 141 135-145 mmol/L Potassium 4.2 3.5-5.3 mmol/L Chloride 104 97-108 mmol/L CO2 25 22-32 mmol/L Glucose 109 65-99 mg/dL BUN 10 8-23 mg/dL Creatinine 0.59 0.50-1.00 mg/dL Calcium 9.5 8.6-10.4 mg/dL eGFR by Creatinine 100 >59 mL/min/1.73m2 Protein 6.9 6.0-8.3 g/dL Albumin 4.1 3.5-5.3 g/dL Alkaline Phosphatase 128 35-121 IU/L ALT (SGPT) 22 <5-47 IU/L AST (SGOT) 17 <5-40 IU/L Bilirubin, Total 0.3 <0.2-1.2 mg/dL A/G Ratio 1.5 1.1-2.5 P-T4 Free (thyroxine) Reviewed date:01/14/2024 09:26:39 AM Interpretation:1.82 Performing Lab: Notes/Report: Test performed by [facility] [address] [place] [address] , [address], [place] [address] Drake Brower MD, Senior Benefits Analyst CLIA: [id number] Thyroxine Free (free T4) 1.82 0.86-1.76 ng/dL P-Lipase Reviewed date:01/14/2024 09:26:39 AM Interpretation: Normal Performing Lab: Notes/Report: Test performed by [facility] [address] [place] [address] , [address], [place] [address] Drake Brower MD, Senior Benefits Analyst CLIA: [id number] Lipase 43.4 13.0-60.0 u/L P-Lipid Panel Reviewed date:01/14/2024 09:26:39 AM Interpretation:trigs 259, hdl 37, chol/hdl 5.38, non-hdl 162 Performing Lab: Notes/Report: Test performed by [facility], [address] [place] [address] Drake Brower MD, Senior Benefits Analyst CLIA: [id number] Cholesterol 199 <200 mg/dL Triglycerides 259 <150 mg/dL HDL Cholesterol 37 >39 mg/dL Cholesterol / HDL Ratio 5.38 0.00-4.44 Ratio Non-HDL Cholesterol 162 <130 mg/dL LDL Cholesterol (Calculation) 110 <130 mg/dL LDL Cholesterol Levels* Less than 100 mg/dL Optimal 100 to 129 mg/dL Near Optimal/ Above Optimal 130 to 159 mg/dL Borderline High 160 to 189 mg/dL High 190 mg/dL and above Very High * Categories as recommended by the 2004 ATPIII guidelines LDL/HDL Ratio 3.0 <3.3 Ratio LDL Cholesterol Patient History Test Date: 01/13/2024 LDL Results: 110 Units: mg/dL % Change: - P-Magnesium Reviewed date:01/14/2024 09:26:39 AM Interpretation: Normal Performing Lab: Notes/Report: Test performed by [facility], [address] [place], [place] [address] Drake Brower MD, Senior Benefits Analyst CLIA: [id number] Magnesium 2.0 1.6-2.4 mg/dL P-TSH Reviewed date:01/14/2024 09:26:39 AM Interpretation:0.02 Performing Lab: Notes/Report: Test performed by [facility] [address] [place] [address] , [address], [place] [address] Drake Brower MD, Senior Benefits Analyst CLIA: [id number] TSH 0.02 0.43-5.25 mU/L P-Vitamin D 25-Hydroxy Reviewed date:01/14/2024 09:26:39 AM Interpretation:26 Performing Lab: Notes/Report: Test performed by [facility] [address] [place] [address] , [address], [place] [address] Drake Brower MD, Senior Benefits Analyst CLIA: [id number] Vitamin D 25-Hydroxy 26.0 30.0-100.0 ng/mL Interpretation of Vitamin D 25 OH: < 20 ng/mL - Deficiency 20 - 29 ng/mL - Insufficiency 30 - 100 ng/mL - Sufficiency > 100 ng/mL - Super-therapeutic- toxicity may occur above this level. Clinical correlation required. Ultrasound : Abdomen Reviewed date:01/20/2024 11:15:56 AM Interpretation:Fatty Liver Performing Lab: Notes/Report: Fatty Liver REASON FOR VISIT Blood Work and C/O Heartbeat in Stomach Medications Medication SIG (Take, Route, Frequency, Duration) Notes Start Date End Date Status Synthroid 175 mcg TAKE ONE TABLET BY M OUTH EVERY DAY; Duration: 30 Active Promethazine-DM 6.25-15 MG/5ML 5 ml as needed Orally every 6 hrs 05/26/2023 Active Aspirin 81 MG 1 cap(s) orally once a day Active Vital Signs Weight 151.6 lbs 01/13/2024 Blood pressure systolic 122 mm Hg 01/13/20 24 Blood pressure diastolic 72 mm Hg 024 Heart Rate 88 /min 01/13/2024 Height 63.50 in 01/13/2024 BMI 26.43 kg/m2 01/13/2024 Encounters Encounter Location Date Provider Diagnosis [facility] [address] [facility] [address] [place] [phone] 01/13/2024 Ever Golden Epigastric abdominal pain R10.13 ; Acquired hypothyroidism E03.9 ; Vitamin D deficiency E55.9 and Hypomagnesemia E83.42 Assessments Encounter Date Diagnosis (ICD Code) Assessment Notes Treatment Notes Treatment Clinical Notes Section Notes 01/13/2024 Epigastric abdominal pain (ICD-10 - R10.13) 01/13/2024 Acquired hypothyroidism (ICD-10 - E03.9) 01/13/2024 Vitamin D deficiency (ICD-10 - E55.9) 01/13/2024 Hypomagnesemia (ICD-10 - E83.42) Plan Of Treatment Next Appt Details Follow Up: via phone to repo rt test results, Reason: Provider Name:Ever Rolle ry, 01/08/2025 10:30:00 AM, [address], [address], [place], [place], [id number], Progress Notes * Sebastian NAGYSolB:1960 ( 64 yo F)Acc No.[id number]:01/13/2024 Progress Notes Patient: Lavonne HORAN Provider: Charanjit Jiménez M.D. :1960 A ge:63 Y S ex:Female Date:01/13/2024 Address:[address] [place] [address] [address] [place], [id number] Subjective: * Chief Complaints: * 1 . Blood Work and C/O Heartbeat in Stomach. * HPI: E ndocrinology: 63 year old female presents with c/o Hypothyroidism P t here to f/u, states she is due for labs today . C ardiology: c/o Palpitations P t complains of heart rate feeling abnormal, states it feels like her heart beat is in her stomach. Pt states when she is laying down her heart will beat really hard then feel like it is in her stomach. * ROS: D ERMATOLOGY: no R jenna. n o H collin. G ASTROENTEROLOGY: no N ausea. n o V omiting. U ROLOGY: no D ifficulty urinating. n o B lood in urine. * Medical History: P ituitary Brain Tumor, failed attempted excision in 2002, Hypothyroidism, degenerative disc disease, Lumbar spine. Declaired disabled around 2006, Squamous cell skin cancer - Right thumb nail bed, 2008, Hiatal hernia, Fibromyalgia, 50 pack year smoking history as of 2016, Migraine headache, Lupus, Dx: 2020. * Surgical History: b rain tumor - failed excision , thyroid surgery , dagoberto , d @c , Right thumb nail removed 02/2009, LT hip arthro gram 01/09/2010, Appendectomy- [facility] 2010, Cholecystectomy 12/09/2012, Lumbar Discectomy & Laminectomy 2013, Right hemicolectomy 05/05. * Hospitalization/Major Diagno stic Procedure: K idney Stones 07/2005, Fall- [facility] ER 08/28/2011, Coccygeal Fracture- [facility] ER 05/04/2012. * Family History: F ather: alive. M other: . 2 son(s) , 2 daughter(s) . . * Social History: C URRENT TOBACCO USE S moking Status: Patient does smoke, packs per day: 1, Since age of: 12. C affeine: yes, frequency:3 a day. Marital Status: Single. Past smoking status: PPD:1 /2 , years: ,determination:. * Medications: T aking Aspirin 81 MG Capsule 1 cap(s) orally once a day , Taking Promethazine-DM 6.25-15 MG/5ML Syrup 5 ml as needed Orally every 6 hrs , Taking Synthroid 175 mcg Tablet TAKE ONE TABLET BY MOUTH EVERY DAY , Discontinued Ascorbic Acid 500 MG Tablet 1 tab(s) orally once a day , Discontinued Alendronate Sodium 70 MG Tablet 1 tab(s) orally once a week , Discontinued Hydroxychloroquine Sulfate 200 MG Tablet 1 tab(s) orally once a day , Discontinued Albuterol Sulfate 108 (90 Base) MCG/ACT Aerosol Powder Breath Activated 1 puff as needed Inhalation every 4 hrs , Medication List reviewed and reconciled with the patient * Allergies: P enicillins, Morphine, Codeine: vomiting, Butorphanol Tartrate: hot flashes, couldn't move. Objective: * Vitals: W t:151.6, Temp:98.0, BP:122/72, HR:88, Nurse:vickie, Ht: 63.50, BMI:26.43. * Examination: G eneral Examination: General Appearance: N AD. H EENT: u nremarkable.?Heart: R SR. L ungs: c lear to auscultation. A bdomen: b owel sounds present, soft, epigastric tenderness to palpation. S kin: n ormal, no rash. P eripheral pulses: normal (2+) bilaterally. E xtremities: n o leg edema. Assessment: * Assessment: 1. E pigastric abdominal pain - R10.13 (Primary) 2 . A cquired hypothyroidism - E03.9 3 . V itamin D deficiency - E55.9 4 . H ypomagnesemia - E83.42 Plan: * Treatment: Value Reference Range A mylase 65 28-100 - U/L * Dana De La Torre 01/14/2024 9:26: 30 AM >See phone encounter ?LAB: P-Comprehensive Metabolic Panel (CMP) (Collection Date & Time - 01/13/2024 11:22 AM)?gluc 109, alk phos 128* Value Reference Range A /G Ratio 1.5 1.1-2.5 - * A lbumin 4.1 3.5-5.3 - g/dL * A lkaline Phosphatase 128 H 35-121 - IU/L * A LT (SGPT) 22 <5-47 - IU/L * A ST (SGOT) 17 <5-40 - IU/L * B ilirubin, Total 0.3 <0.2-1.2 - mg/dL * B UN 10 8-23 - mg/dL * C alcium 9.5 8.6-10.4 - mg/dL * C hloride 104 97-108 - mmol/L * C O2 25 22-32 - mmol/L * C reatinine 0.59 0.50-1.00 - mg/dL * G lucose 109 H 65-99 - mg/dL * P otassium 4.2 3.5-5.3 - mmol/L * S odium 141 135-145 - mmol/L * P rotein 6.9 6.0-8.3 - g/dL * e GFR by Creatinine 100 >59 - mL/min/1.73m2 * Dana De La Torre 01/14/2024 9:26: 30 AM >See phone encounter ?LAB: P-Lipase (Collection Date & Time - 01/13/2024 11:22 AM)?Normal* Value Reference Range L ipase 43.4 13.0-60.0 - u/L * Dana De La Torre 01/14/2024 9:26: 30 AM >See phone encounter ?LAB: CBC Venipuncture (in house) (Collection Date & Time - 01/13/2024)? Normal* Value Reference Range w bc 6.6 3.5 - 10 * l ymph 36.3% 15 - 50 * m id 7.8% 2 - 15 * g ran 55.9% 35 - 80 * r bc 5.03 3.5 - 5.5 * h gb 14.0 11.5 - 16.5 * h ct 42.0 35 - 55 * m cv 83.5 75 - 100 * m ch 27.9 25 - 35 * m chc 33.4 31 - 38 * p latlet 279 100 - 400 * Ita Danielle 01/13/2024 12:31:4 7 PM > Dana De La Torre 01/14/2024 9:26:30 AM >See phone encounter ?Imaging: Ultrasound : Abdomen (Performed Date - 01/19/2024)?Fatty Liver* Dahiana Thomas 01/13/2024 12:44 :05 PM >no auth required; CPT code 44286; faxed to [facility] Helen Tony 01/20/2024 11:15:26 AM > see TE 2.?Acquired hypothyroidism?LAB: P-T4 Free (thyroxine) (Collection Date & Time - 01/13/2024 11:22 AM)? 1.82* Value Reference Range T hyroxine Free (free T4) 1.82 H 0.86-1.76 - ng/d L * Dana De La Torre 01/14/2024 9:26: 30 AM >See phone encounter ?LAB: P-Lipid Panel (Collection Date & Time - 01/13/2024 11:22 AM)?trigs 259, hdl 37, chol/hdl 5.38, non-hdl 162* Value Reference Range C holesterol / HDL Ratio 5.38 H 0.00-4.44 - Ratio * C holesterol 199 <200 - mg/dL * H DL Cholesterol 37 L >39 - mg/dL * L DL Cholesterol (Calculation) 110 <130 - mg/d L * L DL/HDL Ratio 3.0 <3.3 - Ratio * N on-HDL Cholesterol 162 H <130 - mg/dL * T riglycerides 259 H <150 - mg/dL * Dana De La Torre 01/14/2024 9:26: 30 AM >See phone encounter ?LAB: P-TSH (Collection Date & Time - 01/13/2024 11:22 AM)?0.02* Value Reference Range T SH 0.02 L 0.43-5.25 - mU/L * Dana De La Torre 01/14/2024 9:26: 30 AM >See phone encounter 3.?Vitamin D deficiency?LAB: P-Vitamin D 25-Hydroxy (Collection Date & Time - 01/13/2024 11:22 AM)? 26* Value Reference Range V itamin D 25-Hydroxy 26.0 L 30.0-100.0 - ng/mL * Dana De La Torre 01/14/2024 9:26: 30 AM >See phone encounter 4.?Hypomagnesemia?LAB: P-Magnesium (Collection Date & Time - 01/13/2024 11:22 AM)?Normal* Value Reference Range M agnesium 2.0 1.6-2.4 - mg/dL * BrittDana 01/14/2024 9:26: 30 AM >See phone encounter * Procedure Codes: G 2211 Complex e/[place], [address] CBC WITH AUTO DIFF * Follow Up: v ia phone to report test results * Images: Billing Information: * Visit Code: 27397 Office Visit, Est Pt., Level 4. * Procedure Codes: G2211 Complex e/[place]. [address] CBC WITH AUTO DIFF. * Electronic signature of Beatrice Jiménez MD on 12/12/2024 at 09:44 AM EDT Sign off status: Pending * Provider: Charanjit Jiménez M.D. Date: 1 Generated for Printi ng/Faxing/eTransmitting on: 0 12/12/2024 09:44 AM EDT History and Physical Notes * HPI (History of Present Illness) Category Sub-Category Detail Notes Category Not es Endocrinology Hypothyroidism Pt here to f/u, states she is due for labs today Cardiology Palpitations Pt complains of heart rate feeling abnormal, states it feels like her heart beat is in her stomach. Pt states when she is laying down her heart will beat really hard then feel like it is in her stomach Examination Category Sub-Category Detail Notes Category Not es General Examination HEENT: unremarkable Heart: RSR Lungs: clear to auscultatio n Abdomen: bowel sounds present , soft, epigastric tenderness to palpation Extremities: no leg edema General Appearance: NAD Skin: normal, no rash Peripheral pulses: normal (2+) bilatera lly
--- OUTSIDE RECORDS SUMMARY | 2024-05-26 07:00 | XMS_ITS ---
Author Organization [facility] Address [address] [place] [id number] Care Team Providers Care Rate Analyst Name Role Phone Ever Jiménez Primary Care Provider [phone] Allergies Allergen (clinical drug ingredient) Drug/Non Drug Allergy documented on EMR Reaction Allergy Type Onset Date Status butorphanol Butorphanol Tartrate hot flashes, couldn't move Drug Allergy Active codeine Codeine vomiting Drug Allergy Active morphine Morphine Unknown Drug Allergy Active Substance with penicillin structure and antibacterial mechanism of action (substance) Penicillins Unknown Drug Allergy Active Results Component Value Reference Range Notes P-Comprehensive Metabolic Pa dean (CMP) Reviewed date:05/29/2024 05:32:39 PM Interpretation: Normal Performing Lab: Notes/Report: Test performed by [facility] [address] [place] [address] , [address], [place] [address] Drake Brower MD, Rad Technologist CLIA: [id number] Sodium 143 135-145 mmol/L Potassium 4.4 3.5-5.3 mmol/L Chloride 107 97-108 mmol/L CO2 26 22-32 mmol/L Glucose 99 65-99 mg/dL BUN 10 8-23 mg/dL Creatinine 0.70 0.50-1.00 mg/dL Calcium 9.4 8.6-10.4 mg/dL eGFR by Creatinine 96 >59 mL/min/1.73m2 Protein 6.9 6.0-8.3 g/dL Albumin 4.2 3.5-5.3 g/dL Alkaline Phosphatase 108 35-121 IU/L ALT (SGPT) 22 <5-47 IU/L AST (SGOT) 16 <5-40 IU/L Bilirubin, Total 0.3 <0.2-1.2 mg/dL A/G Ratio 1.6 1.1-2.5 P-T4 Free (thyroxine) Reviewed date:05/29/2024 05:32:39 PM Interpretation: Normal Performing Lab: Notes/Report: Test performed by [facility] [address] [place] [address] , [place] [address] Drake Brower MD, Rad Technologist CLIA: [id number] Thyroxine Free (free T4) 1.30 0.86-1.76 ng/dL P-Lipid Panel Reviewed date:05/29/2024 05:32:39 PM Interpretation:trigs 174, chol/hdl 4.69, non-hdl 155 Performing Lab: Notes/Report: Test performed by [facility] [address] [place], [place] [address] , [address], [place] [address] Drake Brower MD, Rad Technologist CLIA: [id number] Cholesterol 197 <200 mg/dL Triglycerides 174 <150 mg/dL HDL Cholesterol 42 >39 mg/dL Cholesterol / HDL Ratio 4.69 0.00-4.44 Ratio Non-HDL Cholesterol 155 <130 mg/dL LDL Cholesterol (Calculation) 120 <130 mg/dL LDL Cholesterol Levels* Less than 100 mg/dL Optimal 100 to 129 mg/dL Near Optimal/ Above Optimal 130 to 159 mg/dL Borderline High 160 to 189 mg/dL High 190 mg/dL and above Very High * Categories as recommended by the 2004 ATPIII guidelines LDL/HDL Ratio 2.9 <3.3 Ratio LDL Cholesterol Patient History Test Date: 01/13/2024 LDL Results: 110 Units: mg/dL % Change: - Test Date: 05/26/2024 LDL Results: 120 Units: mg/dL % Change: +9% P-TSH Reviewed date:05/29/2024 05:32:39 PM Interpretation:0.36 Performing Lab: Notes/Report: Test performed by [facility] [address] [place] [address] , [place] [address] Drake Brower MD, Rad Technologist CLIA: [id number] TSH 0.36 0.43-5.25 mU/L P-Uric Acid Reviewed date:05/29/2024 05:32:39 PM Interpretation: Normal Performing Lab: Notes/Report: Test performed by [facility] [address] , [place] [address] Drake Brower MD, Rad Technologist CLIA: [id number] Uric Acid 4.3 2.4-7.0 mg/dL P-Vitamin D 25-Hydroxy Reviewed date:05/29/2024 05:32:39 PM Interpretation:15.7 Performing Lab: Notes/Report: Test performed by [facility] [address] [place] [address] , [place] [address] Drake Brower MD, Rad Technologist CLIA: [id number] Vitamin D 25-Hydroxy 15.7 30.0-100.0 ng/mL Interpretation of Vitamin D 25 OH: < 20 ng/mL - Deficiency 20 - 29 ng/mL - Insufficiency 30 - 100 ng/mL - Sufficiency > 100 ng/mL - Super-therapeutic- toxicity may occur above this level. Clinical correlation required. REASON FOR VISIT checkup Medications Medication SIG (Take, Route, Frequency, Duration) Notes Start Date End Date Status Triamterene-HCTZ 37.5-25 MG 1 tablet in the morning Orally Once a day; Duration: 90 days 05/26/2024 Active Aspirin 81 MG 1 cap(s) orally once a day Active Synthroid 150 MCG 1 tablet in the morn ing on an empty stomach Orally Once a day 01/24/2024 Active Vital Signs Weight 163 lbs 05/26/2024 Blood pressure systolic 170 mm Hg 05/26/19 25 Blood pressure diastolic 90 mm Hg 025 Heart Rate 100 /min 05/26/2024 Height 63.50 in 05/26/2024 BMI 28.42 kg/m2 05/26/2024 Encounters Encounter Location Date Provider Diagnosis [facility] [address] [place] [id number] 05/26/2024 Ever Jiménez Elevated blood press ure reading R03.0 ; Peripheral edema R60.0 ; Acquired hypothyroidism E03.9 and Vitamin D deficiency E55.9 Assessments Encounter Date Diagnosis (ICD Code) Assessment Notes Treatment Notes Treatment Clinical Notes Section Notes 05/26/2024 Elevated blood pressure reading (ICD-10 - R03.0) 05/26/2024 Peripheral edema (ICD-10 - R60.0) 05/26/2024 Acquired hypothyroidism (ICD-10 - E03.9) 05/26/2024 Vitamin D deficiency (ICD-10 - E55.9) Plan Of Treatment Medication Medication Name Sig Start Date Stop Date Notes Triamterene-HCTZ 37.5-25 MG 1 tablet in the morning Orally Once a day; Duration: 90 days 05/26/2024 Synthroid 150 MCG 1 tablet in the morn ing on an empty stomach Orally Once a day 01/24/2024 Next Appt Details Follow Up: 4 to 6 Weeks, [place] son: Provider Name:Ever Rolle ry, 01/08/2025 10:30:00 AM, [address], [address], [place], [id number], Progress Notes * Nela GARZA:1960 ( 64 yo F)Acc No.[id number]:05/26/2024 Progress Notes Patient: Lavonne HORAN Provider: Charanjit Jiménez M.D. :1960 A ge:63 Y S ex:Female Date:05/26/2024 Address:[address] [place] [address], [place], [id number] Subjective: * Chief Complaints: * 1 . Checkup. * HPI: E ndocrinology: 63 year old female presents with c/o Hypothyroidism P t here to f/u. C ardiology: c/o Leg Edema P t complains of bilateral leg and hand swelling for about 3 days. Pt states that swelling is in her face as well. Pt states that her face was so swollen this morning that you could not see the color of her eyes. * ROS: D ERMATOLOGY: no R jenna. n o H collin. G ASTROENTEROLOGY: no N ausea. n o V omiting. U ROLOGY: no D ifficulty urinating. n o B lood in urine. * Medical History: P ituitary Brain Tumor, failed attempted excision in 2002, Hypothyroidism, degenerative disc disease, Lumbar spine. Declared disabled around 2006, Squamous cell skin cancer - Right thumb nail bed, 2008, Hiatal hernia, Fibromyalgia, 50 pack year smoking history as of 2016, Migraine headache, Lupus, Dx: 2020. * Surgical History: b rain tumor - failed excision , thyroid surgery , dagoberto , d @c , Right thumb nail removed 02/2009, LT hip arthro gram 01/09/2010, Appendectomy- [facility] 2010, Cholecystectomy 12/09/2012, Lumbar Discectomy & Laminectomy 2013, Right hemicolectomy 05/05. * Hospitalization/Major Diagno stic Procedure: K idney Stones 07/2005, Fall- [facility] 08/28/2011, Coccygeal Fracture- [facility] 05/04/2012. * Family History: F ather: alive. M other: . 2 son(s) , 2 daughter(s) . . * Social History: C URRENT TOBACCO USE S moking Status: Patient does smoke, packs per day: 1, Since age of: 12. C affeine: yes, frequency:3 a day. Marital Status: Single. Past smoking status: PPD:1 1/2 , years: ,determination:. * Medications: T aking Aspirin 81 MG Capsule 1 cap(s) orally once a day , Taking Synthroid 150 MCG Tablet 1 tablet in the morning on an empty stomach Orally Once a day , Discontinued Promethazine-DM 6.25-15 MG/5ML Syrup 5 ml as needed Orally every 6 hrs , Medication List reviewed and reconciled with the patient * Allergies: P enicillins, Morphine, Codeine: vomiting, Butorphanol Tartrate: hot flashes, couldn't move. Objective: * Vitals: W t:163, Temp:98.0, BP:170/90, HR:100, Nurse:vickie, Ht: 63.50, Repeat BP:148/92, BMI:28.42. * Examination: E ndocrinology: General Appearance: N AD. H EENT: sclera and conjunctiva clear, PERRLA. H eart: R SR. L ungs: c lear to auscultation. E xtremities: b ilateral trace pitting leg edema. S kin: n ormal, no rash. Assessment: * Assessment: 1. E levated blood pressure reading - R03.0 (Primary) 2 . P eripheral edema - R60.0 3 . A cquired hypothyroidism - E03.9 4 . V itamin D deficiency - E55.9 Plan: * Treatment: Value Reference Range A /G Ratio 1.6 1.1-2.5 - * A lbumin 4.2 3.5-5.3 - g/dL * A lkaline Phosphatase 108 35-121 - IU/L * A LT (SGPT) 22 <5-47 - IU/L * A ST (SGOT) 16 <5-40 - IU/L * B ilirubin, Total 0.3 <0.2-1.2 - mg/dL * B UN 10 8-23 - mg/dL * C alcium 9.4 8.6-10.4 - mg/dL * C hloride 107 97-108 - mmol/L * C O2 26 22-32 - mmol/L * C reatinine 0.70 0.50-1.00 - mg/dL * G lucose 99 65-99 - mg/dL * P otassium 4.4 3.5-5.3 - mmol/L * S odium 143 135-145 - mmol/L * P rotein 6.9 6.0-8.3 - g/dL * e GFR by Creatinine 96 >59 - mL/min/1.73m2 * Dana De La Torre 05/29/2024 5:32: 33 PM >See phone encounter ?LAB: P-Lipid Panel (Collection Date & Time - 05/26/2024 11:08 AM)?trigs 174, chol/hdl 4.69, non-hdl 155* Value Reference Range C holesterol / HDL Ratio 4.69 H 0.00-4.44 - Ratio * C holesterol 197 <200 - mg/dL * H DL Cholesterol 42 >39 - mg/dL * L DL Cholesterol (Calculation) 120 <130 - mg/d L * L DL/HDL Ratio 2.9 <3.3 - Ratio * N on-HDL Cholesterol 155 H <130 - mg/dL * T riglycerides 174 H <150 - mg/dL * Dana De La Torre 05/29/2024 5:32: 33 PM >See phone encounter ?LAB: P-Uric Acid (Collection Date & Time - 05/26/2024 11:08 AM)?Normal* Value Reference Range U ivan Acid 4.3 2.4-7.0 - mg/dL * Dana De La Torre 05/29/2024 5:32: 33 PM >See phone encounter 2.?Peripheral edema?LAB: P-Comprehensive Metabolic Panel (CMP) (Collection Date & Time - 05/26/2024 11:08 AM)?Normal* Value Reference Range A /G Ratio 1.6 1.1-2.5 - * A lbumin 4.2 3.5-5.3 - g/dL * A lkaline Phosphatase 108 35-121 - IU/L * A LT (SGPT) 22 <5-47 - IU/L * A ST (SGOT) 16 <5-40 - IU/L * B ilirubin, Total 0.3 <0.2-1.2 - mg/dL * B UN 10 8-23 - mg/dL * C alcium 9.4 8.6-10.4 - mg/dL * C hloride 107 97-108 - mmol/L * C O2 26 22-32 - mmol/L * C reatinine 0.70 0.50-1.00 - mg/dL * G lucose 99 65-99 - mg/dL * P otassium 4.4 3.5-5.3 - mmol/L * S odium 143 135-145 - mmol/L * P rotein 6.9 6.0-8.3 - g/dL * e GFR by Creatinine 96 >59 - mL/min/1.73m2 * Dana De La Torre 05/29/2024 5:32: 33 PM >See phone encounter 3.?Acquired hypothyroidism? Continue Synthroid Tablet, 150 MCG, 1 tablet in the morning on an empty stomach, Orally, Once a day.?LAB: P-T4 Free (thyroxine) (Collection Date & Time - 05/26/2024 11:08 AM)? Normal* Value Reference Range T hyroxine Free (free T4) 1.30 0.86-1.76 - ng/d L * Dana De La Torre 05/29/2024 5:32: 33 PM >See phone encounter ?LAB: P-TSH (Collection Date & Time - 05/26/2024 11:08 AM)?0.36* Value Reference Range T SH 0.36 L 0.43-5.25 - mU/L * Dana De La Torre 05/29/2024 5:32: 33 PM >See phone encounter 4.?Vitamin D deficiency?LAB: P-Vitamin D 25-Hydroxy (Collection Date & Time - 05/26/2024 11:08 AM)? 15.7* Value Reference Range V itamin D 25-Hydroxy 15.7 L 30.0-100.0 - ng/mL * Dana De La Torre 05/29/2024 5:32: 33 PM >See phone encounter * Procedure Codes: G 2211 Complex e/m visit add on, 3077F SYST BP = 140 MM HG6 IT, 3080F DIAST BP = 90 MM HG * Follow Up: 4 to 6 Weeks * Images: Billing Information: * Visit Code: 04226 Office Visit, Est Pt., Level 4. * Procedure Codes: G2211 Complex e/m visit add on. 3077F SYST BP = 140 MM HG6 IT. 3080F DIAST BP = 90 MM HG. * Electronic signature of Beatrice Jiménez MD on 12/12/2024 at 09:43 AM EDT Sign off status: Pending * Provider: Charanjit Jiménez M.D. Date: 0 05/26/2024 Generated for [facility]/Huy/Heydismitting on: 0 12/12/2024 09:43 AM EDT History and Physical Notes * HPI (History of Present Illness) Category Sub-Category Detail Notes Category Not es Endocrinology Hypothyroidism Pt here to f/u Cardiology Leg Edema Pt complains of bilateral leg and hand swelling for about 3 days. Pt states that swelling is in her face as well. Pt states that her face was so swollen this morning that you could not see the color of her eyes Examination Category Sub-Category Detail Notes Category Not es Endocrinology HEENT: sclera and conjunctiva ricky r, PERRLA Heart: RSR Lungs: clear to auscultatio n Extremities: bilateral trace allison ing leg edema General Appearance: NAD Skin: normal, no rash
--- OUTSIDE RECORDS SUMMARY | 2024-06-28 07:00 | XMS_ITS ---
Author Organization [facility] Address [address] [place] [id number] Care Team Providers Care Dyeing Machine Feeder Name Role Phone Ever Jiménez Primary Care [...] Active Results Component Value Reference Range Notes P-Basic Metabolic Panel (BMP ) Reviewed date:06/29/2024 09:50:19 AM Interpretation: Normal Performing Lab: Notes/Report: Test performed by [facility] [address] [place] [address] , [place] [address] Drake Brower MD, Patient Accounts Coordinator CLIA: [id number] Sodium 140 135-145 mmol/L Potassium 4.6 3.5-5.3 mmol/L Chloride 103 97-108 mmol/L CO2 26 22-32 mmol/L Glucose 89 65-99 mg/dL BUN 9 8-23 mg/dL Creatinine 0.65 0.50-1.00 mg/dL Calcium 9.8 8.6-10.4 mg/dL eGFR by Creatinine 98 >59 mL/min/1.73m2 P-T4 Free (thyroxine) Reviewed date:06/29/2024 09:50:19 AM Interpretation: Normal Performing Lab: Notes/Report: Test performed by [facility] [address] [place] [address] , [address], [place] [address] Drake Brower MD, Patient Accounts Coordinator CLIA: [id number] Thyroxine Free (free T4) 1.33 0.86-1.76 ng/dL P-TSH Reviewed date:06/29/2024 09:50:19 AM Interpretation: Normal Performing Lab: Notes/Report: Test performed by [facility] , [facility], [place] [address] Drake Brower MD, Patient Accounts Coordinator CLIA: [id number] TSH 0.76 0.43-5.25 mU/L P-Microalbumin/Creatinine, R andom Urine Sample Reviewed date:06/29/2024 09:50:19 AM Interpretation: Normal Performing Lab: Notes/Report: [facility] , [place] [address] Drake Brower MD, Patient Accounts Coordinator CLIA: [id number] Albumin/Creatinine Ratio, Urine 13 0-30 ug/mg Microalbumin, Urine, Random 0.7 Creatinine, Urine 53.9 P-Vitamin D 25-Hydroxy Reviewed date:06/29/2024 09:50:19 AM Interpretation:36.3 Performing Lab: Notes/Report: Test performed by [facility] [address] , [facility], [place] [address] Drake Brower MD, Patient Accounts Coordinator CLIA: [id number] Vitamin D 25-Hydroxy 36.3 30.0-100.0 ng/mL Interpretation of Vitamin D 25 OH: < 20 ng/mL - Deficiency 20 - 29 ng/mL - Insufficiency 30 - 100 ng/mL - Sufficiency > 100 ng/mL - Super-therapeutic- toxicity may occur above this level. Clinical correlation required. REASON FOR VISIT 5 Week Follow Up Medications Medication SIG (Take, Route, Frequency, Duration) Notes Start Date End Date Status Synthroid 150 MCG 1 tablet in the morn ing on an empty stomach Orally Once a day 01/24/2024 Active Vitamin D3 1.25 MG (42890 UT) 1 capsule Orally Once a week 05/31/2024 Active Aspirin 81 MG 1 cap(s) orally once a day Active Triamterene-HCTZ 37.5-25 MG 1/2 tablet in the morning Orally Once a day 05/26/2024 Active Problems Problem Type SNOMED Code ICD Code Onset Dates Problem Status W/U Status Risk Notes Problem Essential hypertension (18173381) Essential hypertension (I10) Active confirmed Vital Signs Weight 166 lbs 06/28/2024 Blood pressure systolic 130 mm Hg 06/29/19 25 Blood pressure diastolic 90 mm Hg 025 Heart Rate 95 /min 06/28/2024 Height 63.50 in 06/28/2024 BMI 28.94 kg/m2 06/28/2024 Encounters Encounter Location Date Provider Diagnosis [facility] [address] [place] [phone] 06/28/2024 Ever Jiménez Essential hypertensi on I10 ; Acquired hypothyroidism E03.9 and Vitamin D deficiency E55.9 Assessments Encounter Date Diagnosis (ICD Code) Assessment Notes Treatment Notes Treatment Clinical Notes Section Notes 06/28/2024 Essential hypertension (ICD-10 - I10) 06/28/2024 Acquired hypothyroidism (ICD-10 - E03.9) 06/28/2024 Vitamin D deficiency (ICD-10 - E55.9) Plan Of Treatment Medication Medication Name Sig Start Date Stop Date Notes Synthroid 150 MCG 1 tablet in the morn ing on an empty stomach Orally Once a day 01/24/2024 Vitamin D3 1.25 MG (40153 UT) 1 capsule Orally Once a week 05/31/2024 Triamterene-HCTZ 37.5-25 MG 1/2 tablet i n the morning Orally Once a day 05/26/2024 Next Appt Details Follow Up: 4 Months, Reason: Provider Name:Ever Rolle ry, 01/08/2025 10:30:00 AM, [address], [address], [place], [place], [id number], Progress Notes * Katt NAGYB:1960 ( 64 yo F)Acc No.[id number]:06/28/2024 Progress Notes Patient: Lavonne HORAN Provider: Charanjit Jiménez M.D. :1960 A ge:64 Y S ex:Female Date:06/28/2024 Address:[address] [place] [address], [place], [id number] Subjective: * Chief Complaints: * 1 . 5 Week Follow Up. * HPI: C ardiology: 64 year old female presents with c/o Blood Pressure Elevated?Pt here for 5 week f/u on hypertension. Pt states she has been checking bp at home and it has improved since starting Triamterene- HCTZ on 05/26/2024. * ROS: D ERMATOLOGY: no R jenna. [...] LT hip arthro gram 01/09/2010, Appendectomy- [facility] 2010, Cholecystectomy 12/09/2012, Lumbar Discectomy & Laminectomy 2013, Right hemicolectomy 05/05. * Hospitalization/Major Diagno stic Procedure: K idney Stones 07/2005, Fall- [facility] ER 08/28/2011, Coccygeal Fracture- [facility] 05/04/2012. * Family History: F ather: alive. M other: . 2 son(s) , 2 daughter(s) . . * Social History: C URRENT TOBACCO USE S moking Status: Patient does smoke, packs per day: 1, Since age of: 12. C affeine: yes, frequency:3 a day. Marital Status: Single. Past smoking status: PPD:1 /2 , years: ,determination:. * Medications: T aking Triamterene-HCTZ 37.5-25 MG Tablet 1 tablet in the morning Orally Once a day , Taking Aspirin 81 MG Capsule 1 cap(s) orally once a day , Taking Vitamin D3 1.25 MG (25566 UT) Capsule 1 capsule Orally Once a week , Taking Synthroid 150 MCG Tablet 1 tablet in the morning on an empty stomach Orally Once a day , Medication List reviewed and reconciled with the patient * Allergies: P enicillins, Morphine, Codeine: vomiting, Butorphanol Tartrate: hot flashes, couldn't move. Objective: * Vitals: W t: 166, Temp: 97.8, BP: 130/90, HR: 95, Nurse: vickie, Ht: 63.50, BMI:28.94. * Examination: E ndocrinology: General Appearance: N AD. H eart: R SR. L ungs:?clear to auscultation. E xtremities: n o leg edema. Assessment: * Assessment: 1. E ssential hypertension - I10 (Primary) 2 . A cquired hypothyroidism - E03.9 3 . V itamin D deficiency - E55.9 Plan: * Treatment: Value Reference Range B UN 9 8-23 - mg/dL * C alcium 9.8 8.6-10.4 - mg/dL * C hloride 103 97-108 - mmol/L * C O2 26 22-32 - mmol/L * C reatinine 0.65 0.50-1.00 - mg/dL * G lucose 89 65-99 - mg/dL * P otassium 4.6 3.5-5.3 - mmol/L * S odium 140 135-145 - mmol/L * e GFR by Creatinine 98 >59 - mL/min/1.73m2 * Dana De La Torre 06/29/2024 9:50: 11 AM >See phone encounter ?LAB: P-Microalbumin/Creatinine, Random Urine Sample (Collection Date & Time - 06/28/2024 10:25 AM)?Normal* Value Reference Range A lbumin/Creatinine Ratio, Urine 13 0-30 - ug /mg * C reatinine, Urine 53.9 - mg/dL * M icroalbumin, Urine, Random 0.7 - mg/dL * Dana De La Torre 06/29/2024 9:50: 11 AM >See phone encounter 2.?Acquired hypothyroidism? Continue Synthroid Tablet, 150 MCG, 1 tablet in the morning on an empty stomach, Orally, Once a day.?LAB: P-T4 Free (thyroxine) (Collection Date & Time - 06/28/2024 10:25 AM)? Normal* Value Reference Range T hyroxine Free (free T4) 1.33 0.86-1.76 - ng/d L * Dana De La Torre 06/29/2024 9:50: 11 AM >See phone encounter ?LAB: P-TSH (Collection Date & Time - 06/28/2024 10:25 AM)?Normal* Value Reference Range T SH 0.76 0.43-5.25 - mU/L * Dana De La Torre 06/29/2024 9:50: 11 AM >See phone encounter 3.?Vitamin D deficiency? Continue Vitamin D3 Capsule, 1.25 MG (29410 UT), 1 capsule, Orally, Once a week.?LAB: P-Vitamin D 25-Hydroxy (Collection Date & Time - 06/28/2024 10:25 AM)? 36.3* Value Reference Range V itamin D 25-Hydroxy 36.3 30.0-100.0 - ng/mL * Dana De La Torre 06/29/2024 9:50: 11 AM >See phone encounter * Procedure Codes: G 2211 Complex e/m visit add on, 3075F SYST BP GE 130 - 139MM HG, 3080F DIAST BP = 90 MM HG * Follow Up: 4 Months * Images: Billing Information: * Visit Code: 23015 Office Visit, Est Pt., Level 4. * Procedure Codes: G2211 Complex e/m visit add on. 3075F SYST BP GE 130 - 139MM HG. 3080F DIAST BP = 90 MM HG. * Electronic signature of Beatrice Jiménez MD on 12/12/2024 at 09:43 AM EDT Sign off status: Pending * Provider: Charanjit Jiménez M.D. Date: 06/28/2024 Generated for [facility] goode/Huy/eTalcirasmitting on: 0 12/12/2024 09:43 AM EDT History and Physical Notes * HPI (History of Present Illness) Category Sub-Category Detail Notes Category Not es Cardiology Blood Pressure Elevated Pt here for 5 week f/u on hypertension. Pt states she has been checking bp at home and it has improved since starting Triamterene- HCTZ on 05/26/2024 Examination Category Sub-Category Detail Notes Category Not es Endocrinology Heart: RSR Lungs: clear to auscultatio n Extremities: no leg edema General Appearance: NAD
--- OUTSIDE RECORDS SUMMARY | 2024-10-27 05:45 | XMS_ITS ---
Author Organization [facility] Address [address] [facility] [address] [place] [id number] Care Team Providers Care Vinyl Hanger Name Role Phone Ever Jiménez Primary Care Provider [phone] Allergies Allergen (clinical drug ingredient) Drug/Non Drug Allergy documented on EMR Reaction Allergy Type Onset Date Status butorphanol Butorphanol Tartrate hot flashes, couldn't move Drug Allergy Active codeine Codeine vomiting Drug Allergy Active morphine Morphine Unknown Drug Allergy Active Substance with penicillin structure and antibacterial mechanism of action (substance) Penicillins Unknown Drug Allergy Active REASON FOR VISIT 4 month check Encounters Encounter Location Date Provider Diagnosis [facility] [address] [facility] [address] [place] [id number] 10/27/2024 Ever Jiménez Plan Of Treatment Next Appt Details Provider Name:Ever Rolle ry, 01/08/2025 10:30:00 AM, [address] [facility], [address], [place], [id number], Progress Notes * LATOYASebastian CANCHOLASolB:1960 ( 64 yo F)Acc No.[id number]:10/27/2024 Progress Notes Patient: Lavonne HORAN Provider: Charanjit Jiménez M.D. :1960 A ge:64 Y S ex:Female Date:10/27/2024 Address[address], [id number] Subjective: * Chief Complaints: * 1 . 4 month check. * ROS: D ERMATOLOGY: no R jenna. [...] LT hip arthro gram 01/09/2010, Appendectomy- [facility] 2010, Cholecystectomy 12/09/2012, Lumbar Discectomy & Laminectomy 2013, Right hemicolectomy 05/05. * Hospitalization/Major Diagno stic Procedure: K idney Stones 07/2005, Fall- [facility] 08/28/2011, Coccygeal Fracture- [facility] 05/04/2012. * Family History: F ather: alive. M other: . 2 son(s) , 2 daughter(s) . . * Social History: C URRENT TOBACCO USE S moking Status: Patient does smoke, packs per day: 1, Since age of: 12. C affeine: yes, frequency:3 a day. Marital Status: Single. Past smoking status: PPD:1 1/2 , years: ,determination:. * Allergies: P enicillins, Morphine, Codeine: vomiting, Butorphanol Tartrate: hot flashes, couldn't move. Objective: * Vitals: Assessment: Plan: * Treatment: * Images: Billing Information: * Visit Code: * Procedure Codes: * Electronic signature of Beatrice Jiménez MD on 12/12/2024 at 09:45 AM EDT Sign off status: Pending * Provider: Charanjit Jiménez M.D. Date: 10/27/2024 Generated for Vandana goode/Huy/Heydismitting on: 12/12/2024 09:45 AM EDT
--- OUTSIDE RECORDS SUMMARY | 2024-11-06 06:00 | XMS_ITS ---
Author Organization [facility] Address [address] [place] [id number] Care Team Providers Care Truck Driver Rubbish Collector Name Role Phone Ever Jiménez Primary Care [...] Notes P-Basic Metabolic Panel (BMP ) Reviewed date:11/07/2024 09:39:08 AM Interpretation:Glu 111 Performing Lab: Notes/Report: Test performed by [facility] [address] [place] [address] , [place] [address] Drake Brower MD, Vegetable Cook CLIA: [id number] Sodium 140 135-145 mmol/L Potassium 4.6 3.5-5.3 mmol/L Chloride 106 97-108 mmol/L CO2 24 20-32 mmol/L Glucose 111 65-99 mg/dL BUN 11 8-23 mg/dL Creatinine 0.69 0.50-1.00 mg/dL Calcium 9.3 8.6-10.4 mg/dL eGFR by Creatinine 96 >59 mL/min/1.73m2 P-T4 Free (thyroxine) Reviewed date:11/07/2024 09:39:08 AM Interpretation:Normal Performing Lab: Notes/Report: Test performed by [facility] [address] [place] [address] , [address], [place] [address] Drake Brower MD, Vegetable Cook CLIA: [id number] Thyroxine Free (free T4) 1.25 0.86-1.76 ng/dL P-TSH Reviewed date:11/07/2024 09:39:08 AM Interpretation:Normal Performing Lab: Notes/Report: Test performed by [facility] [address] , [facility], [place] [address] Drake Brower MD, Vegetable Cook CLIA: [id number] TSH 4.71 0.43-5.25 mU/L P-Vitamin D 25-Hydroxy Reviewed date:11/07/2024 09:39:08 AM Interpretation:24.8 Performing Lab: Notes/Report: Test performed by [facility] [address] , [place] [address] Drake Brower MD, Vegetable Cook CLIA: [id number] Vitamin D 25-Hydroxy 24.8 30.0-100.0 ng/mL Interpretation of Vitamin D 25 OH: < 20 ng/mL - Deficiency 20 - 29 ng/mL - Insufficiency 30 - 100 ng/mL - Sufficiency > 100 ng/mL - Super-therapeutic- toxicity may occur above this level. Clinical correlation required. REASON FOR VISIT 4 month follow up Medications Medication SIG (Take, Route, Frequency, Duration) Notes Start Date End Date Status Aspirin 81 MG 1 cap(s) orally once a day Active Synthroid 150 MCG 1 tablet in the morn ing on an empty stomach Orally Once a day 01/24/2024 Active Vitamin D3 1.25 MG (03623 UT) 1 capsule Orally Once a week 05/31/2024 Not-Taking Triamterene-HCTZ 37.5-25 MG 1/2 tablet in the morning Orally Once a day 05/26/2024 Active Problems Problem Type SNOMED Code ICD Code Onset Dates Problem Status W/U Status Risk Notes Problem Body mass index 30+ - obesity (836571973) BMI 30.0-30.9,a dult (Z68.30) Active confirmed Vital Signs Weight 173 lbs 11/06/2024 Blood pressure systolic 160 mm Hg 11/07/19 25 Blood pressure diastolic 90 mm Hg 025 Heart Rate 90 /min 11/06/2024 Height 63.50 in 11/06/2024 BMI 30.16 kg/m2 11/06/2024 Encounters Encounter Location Date Provider Diagnosis [facility] [address] [facility] [address] [place] [id number] 11/06/2024 Ever Jiménez Essential hypertensi on I10 ; Weight gain R63.5 ; Acquired hypothyroidism E03.9 ; Vitamin D deficiency E55.9 ; Breast cancer screening by mammogram Z12.31 ; Screening for lung cancer Z12.2 ; Personal history of nicotine dependence Z87.891 ; Osteoporosis screening Z13.820 ; Colon cancer screening Z12.11 and BMI 30.0-30.9,adult Z68.30 Assessments Encounter Date Diagnosis (ICD Code) Assessment Notes Treatment Notes Treatment Clinical Notes Section Notes 11/06/2024 Essential hypertension (ICD-10 - I10) 11/06/2024 Weight gain (ICD-10 - R63.5) 11/06/2024 Acquired hypothyroidism (ICD-10 - E03.9) 11/06/2024 Vitamin D deficiency (ICD-10 - E55.9) 11/06/2024 Breast cancer screening by mammogram (ICD-10 - Z12.31) 11/06/2024 Screening for lung cancer (ICD-10 - Z12.2) 11/06/2024 Personal history of nicotine dependence (ICD-10 - Z87.891) 11/06/2024 Osteoporosis screening (ICD-10 - Z13.820) 11/06/2024 Colon cancer screening (ICD-10 - Z12.11) 11/06/2024 BMI 30.0-30.9,adult (ICD-10 - Z68.30) Plan Of Treatment Medication Medication Name Sig Start Date Stop Date Notes Triamterene-HCTZ 37.5-25 MG 1/2 tablet i n the morning Orally Once a day 05/26/2024 Pending Test Test Name Order Date colonoscopy 11/06/2024 DEXA Hip and Spine 11/06/2024 Mammogram 11/06/2024 CT Scan : Chest, low dose 11/06/2024 Next Appt Details Follow Up: via phone to repo rt test results, Reason: Provider Name:Ever arrington, 01/08/2025 10:30:00 AM, [address] [facility] [address], [place], [id number], Progress Notes * Katt GARZAB:1960 ( 64 yo F)Acc No.[id number]:11/06/2024 Patient: Lavonne HORAN Provider: Charanjit Jiménez M.D. :1960 A ge:64 Y S ex:Female Date:11/06/2024 Address:[facility] [address], [place], [id number] Subjective: * Chief Complaints: * 1 . 4 month follow up. * HPI: C ardiology: 64 year old female presents with c/o Blood Pressure Elevated?Pt here for f/u on hypertension. Pt's Triamterene-HCTZ was decreased to 37.5-25mg on 06/28/2024.? E ndocrinology: c/o Hypothyroidism P t here to f/u. Pt is concerned about her weight. Pt states she has been eating less and is more active but is still gaining weight. * ROS: D ERMATOLOGY: no R jenna. [...] LT hip arthro gram 01/09/2010, Appendectomy- [facility] 2010, Cholecystectomy 12/09/2012, Lumbar Discectomy & Laminectomy 2013, Right hemicolectomy 05/05. * Hospitalization/Major Diagno stic Procedure: K idney Stones 07/2005, Fall- [facility] ER 08/28/2011, Coccygeal Fracture- [facility] ER 05/04/2012. * Family History: F ather: alive. M other: . 2 son(s) , 2 daughter(s) . . * Social History: C URRENT TOBACCO USE S moking Status: Patient does smoke, packs per day: 1, Since age of: 12. C affeine: yes, frequency:3 a day. Marital Status: Single. Past smoking status: PPD:04 12/ , years: ,determination:. * Medications: T aking Aspirin 81 MG Capsule 1 cap(s) orally once a day , Taking Synthroid 150 MCG Tablet 1 tablet in the morning on an empty stomach Orally Once a day , Not- Taking Vitamin D3 1.25 MG (07454 UT) Capsule 1 capsule Orally Once a week , Not-Taking Triamterene-HCTZ 37.5-25 MG Tablet 1/2 tablet in the morning Orally Once a day , Medication List reviewed and reconciled with the patient * Allergies: P enicillins, Morphine, Codeine: vomiting, Butorphanol Tartrate: hot flashes, couldn't move. Objective: * Vitals: W t: 173, Temp: 97.9, BP: 160/90, HR: 90, Nurse: vickie, Ht: 63.50, BMI:30.16. * Examination: E ndocrinology: General Appearance: N AD. H eart: R SR. L ungs:?clear to auscultation. E xtremities: n o leg edema. Assessment: * Assessment: 1. E ssential hypertension - I10 (Primary) 2 . W eight gain - R63.5 ? 3 . A cquired hypothyroidism - E03.9 4 . V itamin D deficiency - E55.9 5 . B reast cancer screening by mammogram - Z12.31 6 . S creening for lung cancer - Z12.2 7 . P ersonal history of nicotine dependence - Z87.891 8 . O steoporosis screening - Z13.820 9 . C olon cancer screening - Z12.11 1 0. B NM 30.0-30.9,adult - Z68.30 Plan: * Treatment: Value Reference Range B UN 11 8-23 - mg/dL * C alcium 9.3 8.6-10.4 - mg/dL * C hloride 106 97-108 - mmol/L * C O2 24 20-32 - mmol/L * C reatinine 0.69 0.50-1.00 - mg/dL * G lucose 111 H 65-99 - mg/dL * P otassium 4.6 3.5-5.3 - mmol/L * S odium 140 135-145 - mmol/L * e GFR by Creatinine 96 >59 - mL/min/1.73m2 * Benita Montalvo 11/07/2024 09: 39:00 AM EDT > See phone encounter 2.?Acquired hypothyroidism?LAB: P-T4 Free (thyroxine) (Collection Date & Time - 11/06/2024 09:40 AM)? Normal* Value Reference Range T hyroxine Free (free T4) 1.25 0.86-1.76 - ng/d L * Benita Montalvo 11/07/2024 09: 39:00 AM EDT > See phone encounter ?LAB: P-TSH (Collection Date & Time - 11/06/2024 09:40 AM)?Normal* Value Reference Range T SH 4.71 0.43-5.25 - mU/L * Benita Montalvo 11/07/2024 09: 39:00 AM EDT > See phone encounter 3.?Vitamin D deficiency?LAB: P-Vitamin D 25-Hydroxy (Collection Date & Time - 11/06/2024 09:40 AM)? 24.8* Value Reference Range V itamin D 25-Hydroxy 24.8 L 30.0-100.0 - ng/mL * Benita Montalvo 11/07/2024 09: 39:00 AM EDT > See phone encounter 4.?Breast cancer screening by mammogram?Imaging: Mammogram* Dahiana Thomas 11/06/2024 02:1 3:13 PM EDT > faxed to [facility] Scheduling 5.?Screening for lung cancer?Imaging: CT Scan : Chest, low dose* Dahiana Thomas 11/06/2024 02:0 0:39 PM EDT > no auth required; CPT code 05825; faxed to [facility] Scheduling 6.?Personal history of nicotine dependence?Imaging: CT Scan : Chest, low dose* Dahiana Thomas 11/06/2024 02:0 0:39 PM EDT > no auth required; CPT code 01530; faxed to [facility] Scheduling 7.?Osteoporosis screening?Imaging: DEXA Hip and Spine* Dahiana Thomas 11/06/2024 02:1 3:23 PM EDT > faxed to [facility] Scheduling 8.?Colon cancer screening?Imaging: colonoscopy* Dahiana Pérez 10/11 02:17:54 PM EDT > faxed to Dr. Falk * Procedure Codes: G 2211 Complex e/m visit add on * Follow Up: v ia phone to report test results * Images: Billing Information: * Visit Code: 52492 Office Visit, Est Pt., Level 4. * Procedure Codes: G2211 Complex e/m visit add on. * Electronic signature of Beatrice Jiménez MD on 12/12/2024 at 09:44 AM EDT Sign off status: Pending * Provider: Charanjit Jiménez M.D. Date: 0 11/06/2024 Generated for Vandana goode/Huy/eTransmitting on: 0 12/12/2024 09:44 AM EDT History and Physical Notes * HPI (History of Present Illness) Category Sub-Category Detail Notes Category Not es Endocrinology Hypothyroidism Pt here to f/u. Pt is concerned about her weight. Pt states she has been eating less and is more active but is still gaining weight Cardiology Blood Pressure Elevated Pt here for f/u on hypertension. Pt's Triamterene-HCTZ was decreased to 37.5-25mg on 06/28/2024 Examination Category Sub-Category Detail Notes Category Not es Endocrinology Heart: RSR Lungs: clear to auscultatio n Extremities: no leg edema General Appearance: NAD
--- NOTE | 2024-12-12 09:26 | MM_ITS ---
PROCEDURE INFORMATION: Exam: MG Bilateral Screening 3D Mammography Exam date and time: 12/12/2024 9:38 AM Age: 64 years old Clinical indication: Screening. No family history of breast cancer. TECHNIQUE: Imaging protocol: Bilateral Screening tomosynthesis and 2D mammography including computer-aided detection (CAD) when performed. COMPARISON: 1. MG MM DIG SCREENING MAMM BI W/CAD 05/16/2019 8:23 AM 2. MG DMSB DIG MAMM-SCREEN PETE 11/04/2015 4:54 PM 3. MG DMSB DIG MAMM-SCREEN PETE 04/11/2013 9:12 AM FINDINGS: MAMMOGRAPHY: Breast composition: There are scattered areas of fibroglandular density. Mass: None. Architectural distortion: None. Calcifications: No suspicious calcifications. Asymmetric density: None. Skin thickening: None. Axillary adenopathy: None. IMPRESSION: No mammographic evidence of malignancy. Annual screening is recommended unless otherwise clinically indicated. ASSESSMENT: BI-RADS Category 1: Negative.
--- NOTE | 2024-12-12 09:26 | XR_ITS ---
FINAL REPORT CLINICAL HISTORY: Screening COMPARISON: 05/16/2019 FINDINGS: Using L1-4, the bone mineral density of the spine is 0.876 g/cm2, corresponding to T-score of -1.6, consistent with osteopenia. Previously was 0.846 with a T-score of -1.8. Using the left hip, the bone mineral density of the total hip is 0.640 g/cm2, corresponding to a T-score of -2.5, consistent with osteoporosis. Previously was 0.637 with a T-score of -2.5. Using the right hip, the bone mineral density of the femoral neck is 0.688 g/cm2, corresponding to a T-score of -1.5, consistent with osteopenia. Previously was 0.580 with a T-score of -2.4. FRAX not reported because some T-score at or below -2.5 NOTE: T-score: Standard deviation compared with peak bone mass of young adult mean. *Following the recommendations of the International Society of Bone densitometry, classification of hip BMD is based on the lower of two T-scores; total hip or femoral neck. IMPRESSION: Diminished bone mineral density consistent with osteoporosis. Reviewed, Interpreted and Dictated by Bry Bianchi MD Transcribed by Cassy Mcdaniel Authenticated and [facility]
--- NOTE | 2024-12-12 09:28 | CT_ITS ---
FINAL REPORT TECHNIQUE: Thin section axial images were obtained from the lung apices to the upper abdomen by computed tomography. Reformatted images were obtained and reviewed. This study was performed with techniques to keep radiation doses al low as reasonably achievable (ALARA). Individualized dose reduction techniques using automated exposure control or adjustment of mA and/or kV according to the patient's size were employed. CLINICAL HISTORY: SCREENING SMOKER 1 PPD X 50 YEARS COMPARISON: 11/25/2020 FINDINGS: CHEST CT LOW DOSE 64-year-old female, current smoker, 10-diwt-nakf history. CTDI vol (mGy): 2.90 DLP (mGy-cm): 103.16 There is no axillary adenopathy. There is no mediastinal or hilar mass or adenopathy. The heart is normal in size. Moderate coronary artery calcifications are present. There is no pericardial or pleural effusion. There is mild centrilobular emphysema. Lung window images demonstrate a stable 4 mm subpleural nodule in the left upper lobe, best seen on image #24 series 4. Limited images of the upper abdomen are unremarkable. IMPRESSION: Lung-RADS category 2. Recommend 12 month follow up low dose chest CT. Reviewed, Interpreted and Dictated by Bry Bianchi MD Transcribed by Tory Cosby Authenticated and . [facility]
--- OUTSIDE RECORDS SUMMARY | 2024-12-12 09:43 | XMS_ITS | Clinical Summary ---
Author Organization [facility] ([place]) Address [address] [place] [address] Care Team Providers Care Special Education Resource Teacher Name Role Phone Unavailable Primary Care Provider Unavailabl e Social History Tobacco Use Types Packs/Day Years Used Date Smoking Tobacco: Never Assessed Comments Unknown Sex and Gender Information Value Date Recorded Sex Assigned at Not on file Legal Sex Female 6:44 PM CDT Gender Identity Not on file Sexual Orientation Not on file Plan of Treatment Not on file
--- OUTSIDE RECORDS SUMMARY | 2024-12-12 09:43 | XMS_ITS | Clinical Summary ---
Author Organization [facility] Address [address] [place] [address] Care Team Providers Care Layer Out Plate Glass Name Role Phone Ever Jiménez MD Primary Care Provider + [phone] Allergies Active Allergy Reactions Criticality Noted Date Comments Codeine 12/05/2015 Morphine And Codeine 12/05/2015 Penicillins 12/05/2015 Oxycodone-Acetaminophen 12/05/2015 Butorphanol 12/05/2015 Medications levothyroxine (SYNTHROID, LEVOTHROID) 125 MCG tablet Take 175 mcg by mouth Daily. Active baclofen (LIORESAL) 10 MG tablet Take 1 tablet by mouth 3 (Three) Times a Day. Active ibuprofen (ADVIL,MOTRIN) 200 MG tablet Take 1 tablet by mouth As Needed for Mild Pain. Active aspirin 81 MG chewable tablet Chew 1 tablet Daily. Active Active Problems Problem Noted Date Diagnosed Date Colon neoplasm 04/27/2023 S/P right colectomy, lap assisted. 04/27/2023 Hypothyroidism (acquired) 04/27/2023 Family History Medical History Relation Name Comments Cancer Father Cancer Mother Relation Name Status Comments Father Mother Social History Tobacco Use Types Packs/Day Years Used Date Smoking Tobacco: Every Day Cigarettes Smokeless Tobacco: Never Alcohol Use Standard Drinks/Week Comments Yes 0 (1 standard drink = 0.6 oz pur e alcohol) [facility] Utilities Answer Date Recorded In the past 12 months has [employer] electric, gas, oil, or water company threatened to shut off services in your home? No 04/28/2023 AUDIT-C Answer Date Recorded Q1: How often do you have a drink containing alcohol? Never 04/27/2023 Q2: How many drinks containi ng alcohol do you have on a typical day when you are drinking? Patient does not drink Q3: How often do you have si x or more drinks on one occasion? Never 04/27/2023 Exercise Vital Sign Answer Date Recorde d On average, how many days pe r week do you engage in moderate to strenuous exercise (like a brisk walk)? 0 days 04/28/2023 On average, how many minutes do you engage in exercise at this level? 0 min 04/28/2023 Hunger Vital Sign Answer Date Recorded Within the past 12 months, y ou worried that your food would run out before you got the money to buy more. Never true 04/28/19 24 Within the past 12 months, t he food you bought just didn't last and you didn't have money to get more. Never true 04/28/2023 PRAPARE - Transportation Answer Date Re corded In the past 12 months, has l ack of transportation kept you from medical appointments or from getting medications? No 04/12 In the past 12 months, has l ack of transportation kept you from meetings, work, or from getting things needed for daily living? No 04/28/2023 Abuse Screen Answer Date Recorded Feels Unsafe at Home or Work/School no 04/27/2023 Feels Threatened by Someone no 04/12 Does Anyone Try to Keep You From Having Contact with Others or Doing Things Outside Your Home? no 04/27/2023 Physical Signs of Abuse Present no 04/27/2023 Housing Stability Answer Date Recorded Current Living Arrangements home 04/12 Potentially Unsafe Housing Conditions none 04/28/2023 Family and Community Support Answer Candido e Recorded Help with Day-to-Day Activities Not on file 01/18/2023 Lonely or Isolated Not on file 01/18/2023 Employment Answer Date Recorded Do you want help finding or keeping work or a [place] b? Not on file 01/18/2023 Disabilities Answer Date Recorded Difficulty Concentrating, Remembering or Making Decisions no 04/27/2023 Difficulty Managing Errands Independently no 04/27/2023 Education Answer Date Recorded Help with school or training? Not on file 10 /12/2022 Preferred Language Not on file 01/18/2023 Comments No Sex and Gender Information Value Date Recorded Sex Assigned at Not on file Legal Sex Female 1:15 PM EDT Gender Identity Not on file Sexual Orientation Not on file Last Filed Vital Signs Vital Sign Reading Time Taken Comments Blood Pressure 173/96 04/29/2023 12:23 PM EST Pulse 71 04/29/2023 3:48 AM EST Temperature 36.7 C (98 F) 04/29/2023 9:29 AM EST Respiratory Rate 19 04/29/2023 9:29 AM EST Oxygen Saturation 91% 04/29/2023 9:29 AM EST Inhaled Oxygen Concentration - - Weight 70.8 kg (156 lb) 04/27/2023 8:53 AM EST Height 160 cm (5' 3 ) 04/27/2023 8:53 AM EST Body Mass Index 27.63 04/27/2023 8:53 AM EST Plan of Treatment Health Maintenance Due Date Last Done Comments DXA SCAN 1960 Pneumococcal Vaccine 50+ (1 of 2 - PCV) 06/15/1978 MAMMOGRAM 1999 COLOGUARD 06/15/2004 COLON CANCER SCREENING 5 YEAR SIGMOIDOSCOPY 06/15/2004 COLONOSCOPY 06/15/2004 COLORECTAL CANCER SCREENING 06/15/2004 CT COLONOGRAPHY 06/15/2004 FECAL OCCULT BLOOD TEST 06/15/2004 FIT Testing (1 year) 06/15/2004 ZOSTER VACCINE (1 of 2) 06/15/2009 ANNUAL WELLNESS VISIT 04/07/2023 HEPATITIS C SCREENING 04/07/2023 COVID-19 Vaccine ( season) 2023 INFLUENZA VACCINE 01/10/2025 TDAP/TD VACCINES (2 - Td or Tdap) 01/07/2030 020 Medical Devices Implanted Type Area Barrel Rifler Operator Device Identifier Shelf Expiration Date Model / Serial / Lot Stplr Lnr Cut Prox 75mm Pernell [id number] - [id number] Implanted:Qty : 1 on 04/27/2023 by Ramiro Hameed MD at [facility] Implant N/A: Abdomen [employer] J 01/10/2028 TLC75 / / [id number] Reload Stplr Lnr Cut Prox 75mm Pernell Tcr75 - [id number] Implanted:Qty : 2 on 04/27/2023 by Ramiro Hameed MD at [facility] Implant N/A: Abdomen [employer] [id number] 08/10/2027 TCR75 / / [id number] Stplr Lnr Cut 60mm Pernell Reg Tx60b - [id number] Implanted:Qty : 1 on 04/27/2023 by Ramiro Hameed MD at [facility] Implant N/A: Abdomen [employer] 01/10/2028 [id number] / / [id number] Description:SUPPLY Stplr Cut Lnr 30mm Pernell Ta30 Tx30b - [id number] Implanted:Qty : 1 on 04/27/2023 by Ramiro Hameed MD at [facility] Implant N/A: Abdomen [employer] [id number] / / Insurance MEDICAID [place] MEDICARE A & B Advance Directives Documents on File Type Date Recorded Patient Board Of Directors Expl anation POWER OF NON DESTRUCTIVE TESTING TECHNICIAN - SCAN 04/27/2023 1:02 PM GENERAL DURABLE JOCELYN R OF NON DESTRUCTIVE TESTING TECHNICIAN, BHLEX, 04/20/2023 * CPR (Attempt to Resuscitate) (Latest Code Status on File) Date Activated Date Inactivated Comments 04/27/2023 3:10 PM 04/29/2023 5:29 PM Question Answer Comments Code Status (Patient has no pulse and is not breathing): CPR (Attempt to Resuscitate) Medical Interventions (Patie nt has pulse or is breathing): Full Level Of Support Discussed With: Patient Care Teams Layer Out Plate Glass Relationship Specialty Start Date End Date Ever Jiménez MD [facility] [address] [facility] [address] [place] [address] PCP - General Family Medicine 04/27/23
--- OUTSIDE RECORDS SUMMARY | 2024-12-12 09:43 | XMS_ITS ---
Author Organization Unknown Medications Date Medication Dosage DosageUnit StartDate StopDate StopReason Active DoseQuantity DoseUnit Dispense DispenseUnit Refills NdcCode DrugCode PharmacyId IsPrescription MappedMedication Srcstatus Custom 01/12 00:00 :00 Albuterol Sulfate 108 (90 Base) MCG/ACT Aerosol Powder Breath Activated 05/26/2023 00:00:00 0 1 0 [id number] 8 020 P Discontinu ed 01/12 00:00 :00 Alendronate Sodium 70 MG Tablet 0 4.64398 1013 5069 712 Discontinu ed 01/12 00:00 :00 Ascorbic Acid 500 MG Tablet 0 30 208525 29 210 Discontinu ed 06/28 00:00 :00 Aspirin 81 MG Capsule 1 Taking 05/26 00:00 :00 Aspirin 81 MG Capsule 1 Taking 01/12 00:00 :00 Aspirin 81 MG Capsule 1 Taking 01/12 00:00 :00 Hydroxychlo roquine Sulfate 200 MG Tablet 0 30 0009 3240 101 Discontinu ed 05/26 00:00 :00 Promethazin e-DM 6.25-15 MG/5ML Syrup 05/26/2023 00:00:00 0 473 mL 0 3680775 5 701 P Discontinu ed 01/12 00:00 :00 Promethazin e-DM 6.25-15 MG/5ML Syrup 05/26/2023 00:00:00 1 473 mL 0 6635212 5 701 P Taking 06/28 00:00 :00 Synthroid 150 MCG Tablet 01/24/2024 00:00:00 1 6392497 6 911 P Continue 06/28 00:00 :00 Synthroid 150 MCG Tablet 01/24/2024 00:00:00 1 90 Tablet 1 59607 706 911 P Taking 05/29 00:00 :00 Synthroid 150 MCG Tablet 01/24/2024 00:00:00 1 90 Tablet 1 48716 706 911 P Unknown Status 05/26 00:00 :00 Synthroid 150 MCG Tablet 01/24/2024 00:00:00 1 [id number] 6 911 P Continue 05/26 00:00 :00 Synthroid 150 MCG Tablet 01/24/2024 00:00:00 1 2349515 6 911 P Taking 01/13 00:00 :00 Synthroid 150 MCG Tablet 01/24/2024 00:00:00 1 30 Tablet 1 42864 706 911 P Start 01/13 00:00 :00 Synthroid 175 mcg Tablet 0 44059 707 090 Stop 01/12 00:00 :00 Synthroid 175 mcg Tablet 1 30 Tablet 5 62919506 090 Taking 06/28 00:00 :00 Triamterene -HCTZ 37.5-25 MG Tablet 05/26/2024 00:00:00 1 [id number] 2 401 P Decrease 06/28 00:00 :00 Triamterene -HCTZ 37.5-25 MG Tablet 05/26/2024 00:00:00 1 90 Tablet 0 57406 042 401 P Taking 05/26 00:00 :00 Triamterene -HCTZ 37.5-25 MG Tablet 05/26/2024 00:00:00 1 90 Tablet 0 42255 042 401 P Start 06/28 00:00 :00 Vitamin D3 1.25 MG (93662 UT) Capsule 05/31/2024 00:00:00 1 9116480 0 507 P Continue 06/28 00:00 :00 Vitamin D3 1.25 MG (94898 UT) Capsule 05/31/2024 00:00:00 1 13 0 0200535 0 507 P Taking 05/29 00:00 :00 Vitamin D3 1.25 MG (68046 UT) Capsule 05/31/2024 00:00:00 1 13 0 7673676 0 507 P Start
--- OUTSIDE RECORDS SUMMARY | 2024-12-12 09:44 | XMS_ITS | Referral Summary ---
Author Organization [employer] ([place], [place], [place], [place]) Address [address] [place] [address] Care Team Providers Care Concrete Block Maker Name Role Phone Unavailable Primary Care Provider [...]
--- OUTSIDE RECORDS SUMMARY | 2024-12-12 09:45 | XMS_ITS | Patient Health Record ---
Author Organization [facility] Address [address] [place] [id number] Care Team Providers Care Manager Employee Benefits Name Role Phone Ever Jiménez Primary Care Provider [phone] Allergies Allergen (clinical drug ingredient) Drug/Non Drug [...] Normal Performing Lab: Notes/Report: Test performed by [facility] [address] [place] [address] , [address], [place] [address] Drake Brower MD, Web [employer] Operator Apprentice CLIA: [id number] Amylase 65 28-100 U/L P-Comprehensive Metabolic Pa dean (CMP) Reviewed date:01/14/2024 09:26:39 AM Interpretation:gluc 109, alk phos 128 Performing Lab: Notes/Report: Test performed by [facility] [address] [place] [address] , [address], [place] [address] Drake Brower MD, Web [employer] Operator Apprentice CLIA: [id number] Sodium 141 135-145 mmol/L Potassium 4.2 3.5-5.3 [...] Interpretation:1.82 Performing Lab: Notes/Report: Test performed by [facility] [address] [place] [address] , [place] [address] Drake Brower MD, Web [employer] Operator Apprentice CLIA: [id number] Thyroxine Free (free T4) 1.82 0.86-1.76 ng/dL P-Lipase Reviewed date:01/14/2024 09:26:39 AM Interpretation: Normal Performing Lab: Notes/Report: Test performed by [facility] [address] [place] [address] , [address], [place] [address] Drake Brower MD, [employer] Operator Apprentice CLIA: [id number] Lipase 43.4 13.0-60.0 u/L P-Lipid Panel Reviewed date:01/14/2024 09:26:39 AM Interpretation:trigs 259, hdl 37, chol/hdl 5.38, non-hdl 162 Performing Lab: Notes/Report: Test performed by [facility] [address] [place] [address] , [address], [place] [address] Drake Brower MD, Web [employer] Operator Apprentice CLIA: [id number] Cholesterol 199 <200 mg/dL Triglycerides 259 <150 [...] Normal Performing Lab: Notes/Report: Test performed by [facility], [facility] [address] [facility] , [place] [address] Drake Brower MD, Web [employer] Operator Apprentice CLIA: [id number] Magnesium 2.0 1.6-2.4 mg/dL P-TSH Reviewed date:01/14/2024 09:26:39 AM Interpretation:0.02 Performing Lab: Notes/Report: Test performed by [facility] [address] , [address], [place] [address] Drake Brower MD, Web [employer] Operator Apprentice CLIA: [id number] TSH 0.02 0.43-5.25 mU/L P-Vitamin D 25-Hydroxy Reviewed date:01/14/2024 09:26:39 AM Interpretation:26 Performing Lab: Notes/Report: Test performed by [facility] [address] [place] [address] , [address], [place] [address] Drake Brower MD, Web [employer] Operator Apprentice CLIA: [id number] Vitamin D 25-Hydroxy 26.0 30.0-100.0 ng/mL Interpretation of Vitamin D 25 OH: < 20 ng/mL - Deficiency 20 - 29 ng/mL - Insufficiency 30 - 100 ng/mL - Sufficiency > 100 ng/mL - Super-therapeutic- toxicity may occur above this level. Clinical correlation required. Ultrasound : Abdomen Reviewed date:01/20/2024 11:15:56 AM Interpretation:Fatty Liver Performing Lab: Notes/Report: Fatty Liver P-Comprehensive Metabolic Pa dean (CMP) Reviewed date:05/29/2024 05:32:39 PM Interpretation: Normal Performing Lab: Notes/Report: Test performed by [facility] [address] [place] [address] , [address], [place] [address] Drake Brower MD, Web [employer] Operator Apprentice CLIA: [id number] Sodium 143 135-145 mmol/L Potassium 4.4 3.5-5.3 [...] Normal Performing Lab: Notes/Report: Test performed by [facility] [address] , [address], [place] [address] Drake Brower MD, Web Press Operator Apprentice CLIA: [id number] Thyroxine Free (free T4) 1.30 0.86-1.76 ng/dL P-Lipid Panel Reviewed date:05/29/2024 05:32:39 PM Interpretation:trigs 174, chol/hdl 4.69, non-hdl 155 Performing Lab: Notes/Report: Test performed by [facility] [address] , [place] , [place] [address] Drake Brower MD, Web Press Operator Apprentice CLIA: [id number] Cholesterol 197 <200 mg/dL Triglycerides 174 <150 [...] Interpretation:0.36 Performing Lab: Notes/Report: Test performed by [facility] [address] [place], [place] [address] , [place] [address] Drake Brower MD, Web Press Operator Apprentice CLIA: [id number] TSH 0.36 0.43-5.25 mU/L P-Uric Acid Reviewed date:05/29/2024 05:32:39 PM Interpretation: Normal Performing Lab: Notes/Report: Test performed by [facility] [address] [place] [address] , [place] [address] Drake Brower MD, Web Press Operator Apprentice CLIA: [id number] Uric Acid 4.3 2.4-7.0 mg/dL P-Vitamin D 25-Hydroxy Reviewed date:05/29/2024 05:32:39 PM Interpretation:15.7 Performing Lab: Notes/Report: Test performed by [facility] [address] [place] [address] , [address], [place] [address] Drake Brower MD, Web Press Operator Apprentice CLIA: [id number] Vitamin D 25-Hydroxy 15.7 30.0-100.0 ng/mL Interpretation of Vitamin D 25 OH: < 20 ng/mL - Deficiency 20 - 29 ng/mL - Insufficiency 30 - 100 ng/mL - Sufficiency > 100 ng/mL - Super-therapeutic- toxicity may occur above this level. Clinical correlation required. P-Basic Metabolic Panel (BMP ) Reviewed date:06/29/2024 09:50:19 AM Interpretation: Normal Performing Lab: Notes/Report: Test performed by [facility] [address] , [facility] [place] [address], [place] [address] Drake Brower MD, Web Press Operator Apprentice CLIA: [id number] Sodium 140 135-145 mmol/L Potassium 4.6 3.5-5.3 mmol/L Chloride 103 97-108 mmol/L CO2 26 22-32 mmol/L Glucose 89 65-99 mg/dL BUN 9 8-23 mg/dL Creatinine 0.65 0.50-1.00 mg/dL Calcium 9.8 8.6-10.4 mg/dL eGFR by Creatinine 98 >59 mL/min/1.73m2 P-T4 Free (thyroxine) Reviewed date:06/29/2024 09:50:19 AM Interpretation: Normal Performing Lab: Notes/Report: Test performed by [facility] [address] , [address], [place] [address] Drake Brower MD, Web Press Operator Apprentice CLIA: [id number] Thyroxine Free (free T4) 1.33 0.86-1.76 ng/dL P-TSH Reviewed date:06/29/2024 09:50:19 AM Interpretation: Normal Performing Lab: Notes/Report: Test performed by [facility] [address] , [address], [place] [address] Drake Brower MD, Web Press Operator Apprentice CLIA: [id number] TSH 0.76 0.43-5.25 mU/L P-Microalbumin/Creatinine, R andom Urine Sample Reviewed date:06/29/2024 09:50:19 AM Interpretation: Normal Performing Lab: Notes/Report: Test performed by [facility] [address] , [address], [place] [address] Drake Brower MD, Web Press Operator Apprentice CLIA: [id number] Albumin/Creatinine Ratio, Urine 13 0-30 ug/m g Microalbumin, Urine, Random 0.7 Creatinine, Urine 53.9 P-Vitamin D 25-Hydroxy Reviewed date:06/29/2024 09:50:19 AM Interpretation:36.3 Performing Lab: Notes/Report: Test performed by [facility] [address] [place] [address] , [place] [address] Drake Brower MD, Web Press Operator Apprentice CLIA: [id number] Vitamin D 25-Hydroxy 36.3 30.0-100.0 ng/mL Interpretation of Vitamin D 25 OH: < 20 ng/mL - Deficiency 20 - 29 ng/mL - Insufficiency 30 - 100 ng/mL - Sufficiency > 100 ng/mL - Super-therapeutic- toxicity may occur above this level. Clinical correlation required. P-Vitamin D 25-Hydroxy Reviewed date:11/07/2024 09:39:08 AM Interpretation:24.8 Performing Lab: Notes/Report: Test performed by [facility] [address] [place] [address] , [place] [address] Drake Brower MD, Web Press Operator Apprentice CLIA: [id number] Vitamin D 25-Hydroxy 24.8 30.0-100.0 ng/mL Interpretation of Vitamin D 25 OH: < 20 ng/mL - Deficiency 20 - 29 ng/mL - Insufficiency 30 - 100 ng/mL - Sufficiency > 100 ng/mL - Super-therapeutic- toxicity may occur above this level. Clinical correlation required. P-TSH Reviewed date:11/07/2024 09:39:08 AM Interpretation:Normal Performing Lab: Notes/Report: Test performed by [facility] [address] [place] [address] , [place] [address] Drake Brower MD, Web Press Operator Apprentice CLIA: [id number] TSH 4.71 0.43-5.25 mU/L P-T4 Free (thyroxine) Reviewed date:11/07/2024 09:39:08 AM Interpretation:Normal Performing Lab: Notes/Report: Test performed by [facility] [address] [place] [address] , [place] [address] Drake Brower MD, Web Press Operator Apprentice CLIA: [id number] Thyroxine Free (free T4) 1.25 0.86-1.76 ng/dL P-Basic Metabolic Panel (BMP ) Reviewed date:11/07/2024 09:39:08 AM Interpretation:Glu 111 Performing Lab: Notes/Report: Test performed by [facility] [address] [place] [address] , [address], [place] [address] Drake Brower MD, Web Press Operator Apprentice CLIA: [id number] Sodium 140 135-145 mmol/L Potassium 4.6 3.5-5.3 mmol/L Chloride 106 97-108 mmol/L CO2 24 20-32 mmol/L Glucose 111 65-99 mg/dL BUN 11 8-23 mg/dL Creatinine 0.69 0.50-1.00 mg/dL Calcium 9.3 8.6-10.4 mg/dL eGFR by Creatinine 96 >59 mL/min/1.73m2 Medications Medication SIG (Take, Route, Frequency, Duration) Notes Start Date End Date Status Aspirin 81 MG 1 cap(s) orally once a day Active Vitamin D3 1.25 MG (20040 UT) 1 capsule Orally Once a week; Duration: 30 days 05/31/2024 Active Synthroid 150 MCG 1 tablet in the morn ing on an empty stomach Orally Once a day 01/24/2024 Active Triamterene-HCTZ 37.5-25 MG 1/2 tablet in the morning Orally Once a day 05/26/2024 Active Immunizations Vaccine Route Administration Date Status Comme nts Tetanus Tdap-Adacel (over 7yrs) Unknown 01/08/2020 Admi nistered Problems Problem Type SNOMED Code ICD Code Onset Dates Problem Status W/U Status Risk Notes Problem Peripheral neuropathy (487108951) Peripheral neuropathy (356.9) Active confirmed Problem Dyspepsia (798532589) Dyspepsia NOS (536.8) Active confirmed Problem Polyarthralgia (81196185) Polyarthralgia (719.49) Active confirmed Problem Degenerative disc disease (26156884) Degenerative disc disease NOS (722.6) Active confirmed Problem Radiculopathy (55841736) Radiculopathy (729.2) Active confirmed Problem Vitamin D deficiency (01265924) Vitamin D deficiency (E55.9) Active confirmed Problem Essential hypertension (70937492) Essential hypertension (I10) Active confirmed Problem Body mass index 30+ - obesity (528854167) BMI 30.0-30.9,adult (Z68.30) Active confirmed Problem Fibromyalgia (076764101) Fibromyalgia (M79.7) Active confirmed Problem Hypomagnesemia (862781602) Hypomagnesemia (E83.42) Active confirmed Problem Postoperative Hypothyroidism (70187487) Postprocedural hypothyroidism (E89.0) Active confirmed Problem Ophthalmoplegic migraine, 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 confirmed Problem Sciatica (53124119) Lumbago with sciatica, left side (M54.42) Active confirmed Problem Acquired hypothyroidism (738882146) Acquired hypothyroidism (E03.9) Active confirmed Problem Lupus (818294111) Lupus (M32.9) Active confirme d Problem Postoperative hypothyroidism (17368725) Postoperative hypothyroidism (E89.0) Active confirmed Problem Sciatica (48591943) Left sided sciatica (M54.32) Active confirmed Problem Tobacco user (741216461) Cigarette nicotine dependence without complication (F17.210) Active confirmed Problem 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 Vital Signs Heart Rate 90 /min 11/06/2024 Blood pressure diastolic 90 mm Hg 11/06/2024 Height 63.50 in 11/06/2024 Blood pressure systolic 160 mm Hg 11/06/2024 Weight 173 lbs 11/06/2024 BMI 30.16 kg/m2 11/06/2024 Encounters Encounter Location Date Provider [facility] [address] [facility] [address] [place], [place] [id number] 01/13/2024 Ever Catharpin Epigastric abdominal pain R10.13 ; Acquired hypothyroidism E03.9 ; Vitamin D deficiency E55.9 and Hypomagnesemia E83.42 [facility] [address] [place], [place] [id number] 05/26/2024 Ever Catharpin Elevated blood press ure reading R03.0 ; Peripheral edema R60.0 ; Acquired hypothyroidism E03.9 and Vitamin D deficiency E55.9 [facility] [address] [facility] [address] [place], [place] [id number] 06/28/2024 Ever Catharpin Essential hypertensi on I10 ; Acquired hypothyroidism E03.9 and Vitamin D deficiency E55.9 [facility] [address] [facility] [address] [place], [place] [id number] 11/06/2024 Ever Catharpin Essential hypertensi on I10 ; Weight gain R63.5 ; Acquired hypothyroidism E03.9 ; Vitamin D deficiency E55.9 ; Breast cancer screening by mammogram Z12.31 ; Screening for lung cancer Z12.2 ; Personal history of nicotine dependence Z87.891 ; Osteoporosis screening Z13.820 ; Colon cancer screening Z12.11 and BMI 30.0-30.9,adult Z68.30 [facility] [address] [place], [place] [id number] 01/14/2024 Ever Catharpin [facility] [address] [place], [place] [id number] 05/25/2024 Ever Catharpin [facility] [address] [place], [place] [id number] 05/29/2024 Ever Catharpin Acquired hypothyroid ism E03.9 [facility] [address] [place], [place] [id number] 06/29/2024 Ever Catharpin [facility] [address] [place], [place] [id number] 11/07/2024 Ever Catharpin Vitamin D deficiency E55.9 Assessments Encounter Date Diagnosis (ICD Code) Assessment Notes Treatment Notes Treatment Clinical Notes Section Notes 01/13/2024 Acquired hypothyroidism (ICD-10 - E03.9) 01/13/2024 Epigastric abdominal pain (ICD-10 - R10.13) 05/26/2024 Elevated blood pressure reading (ICD-10 - R03.0) 05/26/2024 Peripheral edema (ICD-10 - R60.0) 05/29/2024 Acquired hypothyroidism (ICD-10 - E03.9) 06/28/2024 Essential hypertension (ICD-10 - I10) 06/28/2024 Acquired hypothyroidism (ICD-10 - E03.9) 11/06/2024 Weight gain (ICD-10 - R63.5) 11/06/2024 Essential hypertension (ICD-10 - I10) 11/07/2024 Vitamin D deficiency (ICD-10 - E55.9) 05/26/2024 Acquired hypothyroidism (ICD-10 - E03.9) 11/06/2024 Acquired hypothyroidism (ICD-10 - E03.9) 06/28/2024 Vitamin D deficiency (ICD-10 - E55.9) 01/13/2024 Vitamin D deficiency (ICD-10 - E55.9) 05/26/2024 Vitamin D deficiency (ICD-10 - E55.9) 01/13/2024 Hypomagnesemia (ICD-10 - E83.42) 11/06/2024 Vitamin D deficiency (ICD-10 - E55.9) 11/06/2024 Breast cancer screening by mammogram (ICD-10 - Z12.31) 11/06/2024 Screening for lung cancer (ICD-10 - Z12.2) 11/06/2024 Personal history of nicotine dependence (ICD-10 - Z87.891) 11/06/2024 Osteoporosis screening (ICD-10 - Z13.820) 11/06/2024 Colon cancer screening (ICD-10 - Z12.11) 11/06/2024 BMI 30.0-30.9,adult (ICD-10 - Z68.30) Plan Of Treatment Pending Test Test Name Order Date colonoscopy 11/06/2024 DEXA Hip and Spine 11/06/2024 Mammogram 11/06/2024 CT Scan : Chest, low dose 11/06/2024 Next Appt Details Provider Name:Ever Rolle , 01/08/2025 10:30:00 AM, [address] [facility], [address], [place], [place], [id number], Insurance Providers Payer Name Payer Address Payer Phone Subscriber Number Group Number Insured Name Patient Relationship to Insured Coverage Start Date Coverage End Date [employer] [facility] [address] [address] [place], [place] [id number] [phone] [id number] Lavonne Nagy Self - patient is the insured Medications Administered Medication Instructions Date of Administration Dosage Notes Dexamethasone 11/18/2015 1 mL Medical (General) History Medical History History ICD Code Pituitary Brain Tumor, failed attempted excision in 2002 Hypothyroidism degenerative disc disease, Lumbar spine. Declared disabled around 2006 Squamous cell skin cancer - Right thumb nail bed, 2008 Hiatal hernia Fibromyalgia 50 pack year smoking history as of 2016 migraine headache Lupus, Dx: 2020 Surgical History Surgery Date(Month/Year) brain tumor - failed excision thyroid surgery dagoberto d @[facility] Right thumb nail removed 02/2009 LT hip arthro gram 01/09/2010 [facility]endectomy- [facility] 2011 Cholecystectomy 12/09/2012 Lumbar Discectomy & Laminectomy 2013 Right hemicolectomy 05/05 Hospitalization History Reason Date(Month/Year) Coccygeal Fracture- [facility] 05/04/2012 Fall- [facility] 08/28/2011 Kidney Stones 07/2005
== END 2024-12-12 23:59 | disposition home or self-care (01) ==
LOC: RAD 09:20
PROVIDERS: PCP Family Medicine; Visit Provider Family Medicine
DX: Z12.31 Encounter for screening mammogram for malignant neoplasm of breast (principal); I25.10 Atherosclerotic heart disease of native coronary artery without angina pectoris; J43.2 Centrilobular emphysema; M81.0 Age-related osteoporosis without current pathological fracture; R91.1 Solitary pulmonary nodule; R92.323 Mammographic fibroglandular density, bilateral breasts; Z12.2 Encounter for screening for malignant neoplasm of respiratory organs; Z87.891 Personal history of nicotine dependence
CPT/HCPCS: 71271; 77063; 77067; 77080

== ENCOUNTER 2025-01-10 07:26 | Day surgery (SDC) | payer MEDICARE, OTHER, SELFPAY ==
[2025-01-09 09:24] VITALS: BMI 29.7
--- NOTE | 2025-01-09 17:13 | EXP.HP ---
History of Present Illness *Admission Date: 01/10/25 *History of present illness: Mrs. Nagy is a 64-year-old female who is here for screening/surveillance colonoscopy. The patient does have known multiple adenomatous polyps in the past and has been followed by Dr. James Longo MD. Her last colonoscopy in February 2023 did show an existing laterally spreading large advanced adenomatous colon polyp (tubulovillous adenoma) that had previously been present and there was failed attempt at removal. The patient did have right hemicolectomy for this was recommended by Dr. Longo. The examination is deemed medically necessary for screening/surveillance colonoscopy. The patient has been seen, interviewed and examined prior to the procedure by both myself and the anesthesia provider. [facility] Disclaimer: The information contained in this section may have been updated after the patient was seen, as this information can be updated by other users. Medical History History of brain tumor COPD (chronic obstructive pulmonary disease) Migraines Pituitary tumor History of COVID-19 Chronic cough Hypothyroid Allergies Surgical History (Updated 01/10/25 @ 07:51 by Millicent Rome RN) History of colon resection History of colonoscopy S/P thyroid surgery Hx of appendectomy History of cholecystectomy History of hysterectomy History of surgery Family History Other Cancer Social History (Updated 01/10/25 @ 07:51 by Millicent Rome RN) Smoking Status: Current every day smoker tobacco type: cigarettes packs per day: 1 alcohol intake: never substance use type: denies use current occupational status: retired Travel in the last 8 weeks?: None household members: family and children housing: house current occupational exposures/hazards: No caffeine: Yes Have you lived/traveled outside [place] in past 30 days?: No Contact w/someone who lives/traveled outside US past 30 days?: No Exposure to someone with infectious disease in past 14 days?: No Do you have a fever (greater than 100.4 F or 38 C)?: No Have you tested positive for COVID-19?: No Exposed to someone with COVID-19 in past 14 days?: No Do you have a sore throat?: No Do you have a cough?: No Do you have any weakness?: No Are you experiencing any nausea/vomitting?: No Do you have any diarrhea?: No Are you experiencing any unusual bleeding?: No Do you have any muscle aches/pain?: No Do you have any abdominal pain?: No Are you experiencing loss of taste or smell?: No Other Medical History Have you received the Flu Vaccine for this season: No Have you received the Pneumonia Vaccine: Yes Review of Systems Review of Systems Review of systems (narrative): Negative *Cardiovascular Comments: Negative *Gastrointestinal Comments: Negative *Genitourinary Comments: Negative *Musculoskeletal Comments: Negative *Neurologic Comments: Negative Meds Home Medications and Allergies Home Medications ?Medication ?Instructions ?Recorded ?Confirmed ?Type levothyroxine 175 mcg tablet 150 mcg PO DAILY . 06/11/20 02/25/23 History aspirin 81 mg tablet,delayed 81 mg PO DAILY . 07/23/20 02/25/23 History release (Adult Low Dose Aspirin) sodium sul 1.479 gram-potas ch See Rx Instructions PO PER PKG DIR 12/27/24 Rx 0.188 gram-magnes sul 0.225 gram colonscopy #24 tabs tablet (Sutab) New Prescriptions to Start Prescriptions: Allergies Allergy/AdvReac Type Severity Reaction Status Date / Time butorphanol Allergy Unknown UNKNOWN Verified 01/10/25 07:41 codeine Allergy Unknown UNKNOWN Verified 01/10/25 07:41 morphine Allergy Unknown UNKNOWN Verified 01/10/25 07:41 Penicillins Allergy Unknown Hives Verified 01/10/25 07:41 Exam Data for Last 24 hours I & O for Last 24 hours: Intake & Output 01/06/25 01/07/25 01/08/25 01/09/25 23:59 23:59 23:59 23:59 Weight 168 lb *Routine HEENT Exam Head: Present normocephalic Eye: Present EOMI and PERRL ENT: Present mucous membranes moist *Routine Neck Exam Neck: Present supple *Routine Respiratory Exam Respiratory: Present CTA bilaterally *Routine Cardiovascular Exam Cardiovascular: Present RRR *Routine Abdominal Exam Abdominal: Present soft and normoactive bowel sounds; Absent tenderness *Routine Rectal Exam Rectal:: deferred *Routine Genitalia Exam Genitalia:: deferred *Routine Extremities Exam Extremities: Absent cyanosis, clubbing or edema *Routine Skin Exam Skin: Present warm; Absent rash *Routine Neurological Exam Neurological: Present alert and oriented X3 Assessment and Plan *Assessment and plan (1) Tubulovillous adenoma of colon: Status: Acute Category: Medical Code(s): D12.6 - Benign neoplasm of colon, unspecified (2) Personal history of adenomatous and serrated colon polyps: Status: Acute Category: Medical Code(s): Z86.0101 - Personal history of adenomatous and serrated colon polyps (3) Screening for colon cancer: Status: Acute Category: Medical Code(s): Z12.11 - Encounter for screening for malignant neoplasm of colon Plan A/P: 1. Prior large and advanced tubulovillous adenoma of ascending colon with history of multiple adenomatous polyps is the preprocedural diagnosis. The patient will be anesthetized/sedated using MAC sedation. The patient has been seen and examined. Cardiac and lung assessment prior to the examination is stable. Proceed with planned screening/surveillance colonoscopy.
--- NOTE | 2025-01-10 07:06 | HMH.PROCNOTE ---
[facility] Procedure Note Date: 01/10/25 Time: 09:05 Procedure Note:: Colonoscopy Procedure Report: Colonoscopy with cold snare polypectomy Endoscopist: Ben Falk II, MD Referring physician: Ever Jiménez MD Date of Procedure: January 10, 2025 Equipment: Olympus [id number] adult colonoscope Sedation: MAC sedation Indication: Mrs. Nagy is a 64-year-old female who is here for screening/surveillance colonoscopy. The patient does have known multiple adenomatous polyps in the past and has been followed by Dr. James Longo MD. Her last colonoscopy in February 2023 did show an existing laterally spreading large advanced adenomatous colon polyp (tubulovillous adenoma) that had previously been present and there was failed attempt at colonoscopic removal. The patient did have right hemicolectomy by Dr. Ramiro Hameed MD subsequently at [facility]. She has not had a colonoscopy since then. She has had some intermittent stabbing pain at the surgical incision site since surgery. She reports no rectal bleeding, weight loss, change in her bowel habits or family history of colon cancer. The examination is deemed medically necessary for screening/surveillance colonoscopy. Procedure: Prior to the procedure, a history and physical exam was performed, and patient's medications and allergies were reviewed. The risks, benefits and alternatives of the sedation and procedure were discussed with the patient. All questions were answered and informed consent was obtained. The patient was brought to the procedure room. Patient identification and proposed procedure were verified by the physician and the nurse. The patient was placed in a left lateral decubitus position and the scope was passed under direct vision. Throughout the procedure, the patient's blood pressure, pulse, and oxygen saturations were monitored continuously. The colonoscopy was accomplished without difficulty. The patient tolerated the procedure well. Findings: On digital rectal examination there was normal rectal tone. There were no external hemorrhoids. The colonoscope was introduced through the anal canal to the rectum and advanced to the ileocolonic anastomosis. This appeared to be a [id number] anastomosis. The scope was advanced a short distance into the ileum which appeared grossly normal. The scope was then withdrawn into the colon. The remaining transverse colon and mucosa were grossly normal. There were scattered diverticuli throughout the descending and sigmoid colon (LEFT colon). There were 4 diminutive hyperplastic appearing polyps in the sigmoid and rectosigmoid all removed via cold snare polypectomy. The rectum itself was normal. Upon retroflexion within the rectum there were grade 1-2 internal hemorrhoids. The preparation was excellent throughout with Interior Preparation Score of 9. The cecal time was 12 minutes. Impression: 1. Diminutive hyperplastic appearing sigmoid/rectosigmoid polyps x 4 2. Left-sided diverticulosis 3. Normal ileocolonic anastomosis 4. Grade 1-2 internal hemorrhoids Plan: I will follow-up the polyp histology and recommend repeat screening/surveillance colonoscopy again in 5 years. I would encourage psyllium bulking fiber supplementation.
[2025-01-10 07:39] VITALS: BP 159/91; PULSE 68; RESP 18; TEMP 36.6
[2025-01-10] MEDS: LACTATED RINGERS 1000ML 1,000 ML 50 ML IV (07:54)
--- NOTE | 2025-01-10 08:49 | P.PNANES_ITS ---
[facility] Disclaimer: The information contained in this section may have been updated after the patient was seen, as this information can be updated by other users. Medical History History of brain tumor COPD (chronic obstructive pulmonary disease) Migraines Pituitary tumor History of COVID-19 Chronic cough Hypothyroid Allergies Surgical History History of colon resection History of colonoscopy S/P thyroid surgery Hx of appendectomy History of cholecystectomy History of hysterectomy History of surgery Family History Other Cancer Social History Smoking Status: Current every day smoker tobacco type: cigarettes packs per day: 1 alcohol intake: never substance use type: denies use current occupational status: retired Travel in the last 8 weeks?: None household members: family and children housing: house current occupational exposures/hazards: No caffeine: Yes Have you lived/traveled outside [place] in past 30 days?: No Contact w/someone who lives/traveled outside [place] past 30 days?: No Exposure to someone with infectious disease in past 14 days?: No Do you have a fever (greater than 100.4 F or 38 C)?: No Have you tested positive for COVID-19?: No Exposed to someone with COVID-19 in past 14 days?: No Do you have a sore throat?: No Do you have a cough?: No Do you have any weakness?: No Are you experiencing any nausea/vomitting?: No Do you have any diarrhea?: No Are you experiencing any unusual bleeding?: No Do you have any muscle aches/pain?: No Do you have any abdominal pain?: No Are you experiencing loss of taste or smell?: No [facility] Anesthesia Checklist Patient Identification Patient Identification: Arm Band and Verbal (Name & ) Structural Data Admitted From: Home Planned Operative Procedure/s: colonscopy Consent for Planned Operative Procedure(s) Verified: Yes Verified Documents: Surgical Consent NPO Status Verified Time NPO: 00:00 Additional verifications Anesthesia Reactions: No Previous Colonoscopy: Yes Airway Assessment Mallampati Score:: Class II Dentition: Dentures-good fit Neurological Assessment Level of Consciousness: Awake, Alert and Appropriate Hx Seizures: No Numbness or tingling in extremities: No Anesthesia Plan Anesthesia Risk discussed: Yes Anesthesia Plan: Verified ASA Class: II Anesthesia Type: MAC
[2025-01-10 09:10] VITALS: BP 124/81; PULSE 65; RESP 16; TEMP 36.3; O2SAT 97
[2025-01-10 09:20] VITALS: BP 121/76; PULSE 64; RESP 16; TEMP 36.3; O2SAT 98
[2025-01-10 09:30] VITALS: BP 135/71; PULSE 58; RESP 18; TEMP 36.3; O2SAT 99
[2025-01-10 09:40] VITALS: BP 140/72; PULSE 62; RESP 18; TEMP 36.3; O2SAT 99
== END 2025-01-10 09:40 | disposition home or self-care (01) ==
PROVIDERS: PCP Family Medicine; Visit Provider Internal Medicine Gastroenterology
PROC: 0DJD8ZZ Inspection of Lower Intestinal Tract, Via Natural or Artificial Opening Endoscopic (ICD-10-PCS; CPT 45378; principal; 2025-01-10 09:00)
DX: Z12.11 Encounter for screening for malignant neoplasm of colon (principal); K63.5 Polyp of colon; K57.30 Diverticulosis of large intestine without perforation or abscess without bleeding; K64.0 First degree hemorrhoids; K64.1 Second degree hemorrhoids; D12.6 Benign neoplasm of colon, unspecified; F17.210 Nicotine dependence, cigarettes, uncomplicated; Z86.0101 Personal history of adenomatous and serrated colon polyps; Z79.82 Long term (current) use of aspirin; Z88.0 Allergy status to penicillin; Z88.5 Allergy status to narcotic agent; Z98.0 Intestinal bypass and anastomosis status
CPT/HCPCS: 45385; J2003; J2704; J7120